=== PATIENT | male | born 1930 | race Caucasian/White ===

== ENCOUNTER 2016-07-01 21:05 | Inpatient (IN) | payer MEDICARE ==
[~2016-07-01] VITALS: Ht 172.7 cm; Wt 81.1 kg
[2016-07-01 21:15] VITALS: BP 153/70; PULSE 94; RESP 17
[2016-07-01 22:35] VITALS: Ht 172.7 cm; Wt 81.1 kg
[2016-07-01] MEDS ORDERED: ALBUTEROL HFA 8 GM INHALER INH SCH (23:00)
[2016-07-01] MEDS ORDERED: ALBUTEROL HFA 8 GM INHALER INH PRN (23:00)
[2016-07-01] MEDS ORDERED: ALPRAZOLAM 0.25 MG TAB PO PRN (23:00)
[2016-07-01] MEDS ORDERED: ACETAMINOPHEN 325 MG TAB PO PRN ×2 (23:00→23:06)
[2016-07-01] MEDS ORDERED: IBUPROFEN 200 MG TAB PO PRN (23:00)
[2016-07-01] MEDS ORDERED: [UNRECOGNIZED DRUG - OTHER] XX SCH (23:30)
[2016-07-01] MEDS: ATORVASTATIN 10 MG TAB PO SCH (23:53)
[2016-07-01] MEDS: DEXTROSE 10% 1,000 ML IV SCH (23:54)
[2016-07-01] MEDS: DOXAZOSIN 4 MG TAB PO SCH (23:54)
[2016-07-01 23:56] LABS: ADD UMIC NO; URINE BILIRUBIN (Dip) NEGATIVE (NEGATIVE); URINE BLOOD (Dip) NEGATIVE (NEGATIVE); URINE COLOR LT. YELLOW (YELLOW); URINE GLUCOSE (Dip) NEGATIVE (NEGATIVE); URINE KETONES (Dip) NEGATIVE (NEGATIVE); URINE LEUKOCYTE ESTERASE (Dip) NEGATIVE (NEGATIVE); URINE NITRITE (Dip) NEGATIVE (NEGATIVE); URINE TOTAL PROTEIN (Dip) NEGATIVE (NEGATIVE); URINE UROBILINOGEN (Dip) 0.2 E.U./dL (0.1-1.0)
[2016-07-02] MEDS ORDERED: LACTULOSE 30ML CUP PO PRN (01:30)
[2016-07-02] MEDS ORDERED: MAGNESIUM HYDROXIDE 30ML CUP PO PRN (01:30)
[2016-07-02] MEDS: DEXTROSE 10% 1,000 ML IV SCH ×2 (06:32→14:33)
[2016-07-02 07:00] VITALS: BP 121/58; RESP 18
[2016-07-02 08:39] LABS: BASOPHILS % 0.5 % (0.0-2.0); EOSINOPHILS # 0.1 10^3/ul (0.0-0.5); EOSINOPHILS % 1.5 % (0.0-7.0); HEMATOCRIT 25.7 % (42.0-52.0); HEMOGLOBIN 8.7 g/dl (14.0-18.0); LYMPHOCYTES # 2.2 10^3/ul (0.8-2.9); MEAN CORPUSCULAR HGB CONC 33.8 g/dl (32.0-37.0); MEAN CORPUSCULAR VOLUME 94.7 fl (82.0-101.0); MEAN PLATELET VOLUME 8.4 fl (7.4-10.4); MONOCYTE # 0.9 10^3/ul (0.3-0.9); MONOCYTES % 10.1 % (0.0-11.0); NEUTROPHIL # 5.8 10^3/ul (1.6-7.5); NEUTROPHILS % 63.9 % (39.0-77.0); PLATELET COUNT 323 10^3/UL (140-440); RED BLOOD COUNT 2.72 10^6/ul (4.70-6.10); RED CELL DISTRIBUTION WIDTH 15.8 % (11.5-14.5); UNCORRECTED WBC 9.1 10^3/ul (4.8-10.8); WHITE BLOOD COUNT 9.1 10^3/ul (4.8-10.8)
[2016-07-02 08:47] LABS: CONDITION 1
[2016-07-02 08:48] LABS: LH ANALYZER COMMENTS 1
[2016-07-02 08:59] LABS: ALBUMIN 2.8 g/dl (3.3-4.9)
[2016-07-02 09:00] LABS: POTASSIUM 3.6 mmol/L (3.5-5.1)
[2016-07-02] MEDS: RANITIDINE 150 MG TAB PO SCH (09:00)
[2016-07-02] MEDS: ACCUCHECK XX SCH ×2 (09:00→21:54)
[2016-07-02 09:02] LABS: ALBUMIN/GLOBULIN RATIO 0.75; BILIRUBIN,INDIRECT 0.2 mg/dl (0-1.1); BILIRUBIN,TOTAL 0.2 mg/dl (0.2-1.3); CREATININE 0.63 mg/dl (0.61-1.24); TOTAL PROTEIN 6.5 g/dl (6.1-8.1)
[2016-07-02 09:03] LABS: CALCIUM 8.8 mg/dl (8.4-10.2)
[2016-07-02 09:08] VITALS: BP 121/58; PULSE 101; RESP 18
[2016-07-02] MEDS: ASPIRIN 81 MG TAB PO SCH (09:11)
[2016-07-02] MEDS: LIDOCAINE 5% PATCH TD SCH (09:11)
[2016-07-02] MEDS: BUPROPION (XL) 150 MG TAB PO SCH (09:11)
[2016-07-02] MEDS: DOCUSATE SODIUM 100 MG CAP PO SCH ×2 (09:11→21:06)
[2016-07-02] MEDS: FINASTERIDE 5 MG TAB PO SCH (09:11)
--- NOTE | 2016-07-02 10:53 | PN ---
Date/Time of Note Date/Time of Note DATE: 07/02/16 TIME: 10:51 Assessment/Plan VTE Prophylaxis VTE Prophylaxis Intervention: ambulation Lines/Catheters IV Catheter Type (from [facility]): PICC Line Central line still needed: Yes Urinary Cath still in place: No Assessment/Plan Chief Complaint/Hosp Course 1) debilitation - acute rehab 2) pancreatic ca - s/p whipple - on TPN currently but also taking oral nutrition Problems: Subjective 24 Hr Interval Summary Free Text/Dictation Patient is a transfer from [facility] to Acute Rehab for therapy. Patient has a history of pancreatic CA and is s/p Whipple procedure. He is on TPN while awaiting his return to oral nutrition and he need therapy Exam/Review of Systems Vital Signs Vitals Vital Signs Date Time Temp Pulse Resp B/P Pulse Ox O2 Delivery O2 Flow Rate FiO2 07/02/16 09:08 98.4 101 18 121/58 97 Room Air Intake and Output 07/01/16 07/01/16 07/02/16 15:00 23:00 07:00 Intake Total 1060 ml Output Total 730 ml Balance 330 ml Exam Constitutional: alert, well developed Head: atraumatic, normocephalic Respiratory: clear to auscultation Cardiovascular: regular rate and rhythm Gastrointestinal: non-tender, soft Extremities: normal pulses Results Result Diagram: 07/02/16 0727 07/02/16 0727 Results 24 hrs Laboratory Tests Test 07/01/16 21:50 07/01/16 21:56 07/02/16 07:27 07/02/16 07:45 Urine Bilirubin NEGATIVE Urine Clarity CLEAR Urine Color LT. YELLOW Urine Glucose NEGATIVE Urine Hemoglobin NEGATIVE Urine Ketones NEGATIVE Urine Leukocyte Esterase NEGATIVE Urine Nitrite NEGATIVE Urine Specific [place] 1.015 Urine Total Protein NEGATIVE Urine Urobilinogen 0.2 E.U./dL Urine pH 7.5 Bedside Glucose 86 107 Alanine Aminotransferase (ALT/SGPT) 72 H Albumin 2.8 L Albumin/Globulin Ratio 0.75 Alkaline Phosphatase 193 H Anion Gap 14 Aspartate Amino Transf (AST/SGOT) 42 Basophils # 0.0 Basophils % 0.5 Blood Morphology Comment Blood Urea Nitrogen 9 Calcium Level 8.8 Carbon Dioxide Level 28 Chloride Level 99 Creatinine 0.63 Direct Bilirubin 0.00 Eosinophils # 0.1 Eosinophils % 1.5 Globulin 3.70 H Glucose Level 99 # Hematocrit 25.7 L Hemoglobin 8.7 L Indirect Bilirubin 0.2 Lymphocytes # 2.2 Lymphocytes % 24.0 Mean Corpuscular Hemoglobin 32.0 Mean Corpuscular Hemoglobin Concent 33.8 Mean Corpuscular Volume 94.7 Mean Platelet Volume 8.4 Monocytes # 0.9 Monocytes % 10.1 Neutrophils # 5.8 Neutrophils % 63.9 Nucleated Red Blood Cells # 0.0 Nucleated Red Blood Cells % 0.0 Platelet Count 323 Potassium Level 3.6 Red Blood Count 2.72 L Red Cell Distribution Width 15.8 H Sodium Level 137 Total Bilirubin 0.2 Total Protein 6.5 White Blood Count 9.1 Test 07/02/16 09:29 Bedside Glucose 166 Medications Medications Current Medications Ranitidine HCl (Zantac) 150 mg DAILY PO ; Start 07/02/16 at 09:00 Finasteride (Proscar) 5 mg DAILY PO Last administered on 07/02/16at 09:11; Admin Dose 5 MG; Start 07/02/16 at 09:00 Ibuprofen (Motrin) 200 mg Q6H PRN PO PAIN; Start 07/01/16 at 23:00 Lidocaine (Lidoderm) 1 patch DAILY TD Last administered on 07/02/16at 09:11; Admin Dose 1 PATCH; Start 07/02/16 at 09:00 Oxycodone/ Acetaminophen (Percocet (5/ 325)) 1 tab Q6H PRN PO PAIN; Start at 23:00 Alprazolam (Xanax) 0.5 mg QHS PRN PO SLEEP; Start 07/01/16 at 23:00 Aspirin (Aspirin) 81 mg DAILY PO Last administered on 07/02/16at 09:11; Admin Dose 81 MG; Start 07/02/16 at 09:00 Atorvastatin Calcium (Lipitor) 10 mg DAILY@21 PO Last administered on at 23:53; Admin Dose 10 MG; Start 07/01/16 at 22:38 Bupropion HCl 300 mg 300 mg DAILY PO Last administered on 07/02/16at 09:11; Admin Dose 300 MG; Start 07/02/16 at 09:00 Dextrose (D10w) 1,000 ml @ 133 mls/hr Q7H32M IV Last administered on at 23:54; Admin Dose 133 MLS/HR; Start 07/01/16 at 23:00 Doxazosin Mesylate (Cardura) 8 mg 21 PO Last administered on 07/01/16at 23:54; Admin Dose 8 MG; Start 07/01/16 at 23:00 Albuterol (Ventolin Hfa) 2 puff Q4H PRN INH SHORTNESS OF BREATH; Start at 23:00 Diagnostic Test (Pha) 1 ea 1 ea Q12 XX ; Start 07/02/16 at 09:00 Total Parenteral Nutrition (Tpn) 1,000 ml @ 133 mls/hr Q7H32M IV ; Start 07/02 at 21:00 Miscellaneous Information (*Order Clarification Bulletin) [facility] IS NON FORMUL... Q8H XX ; Start 07/01/16 at 23:30 Acetaminophen (Tylenol Tab) 325 mg Q6H PRN PO PAIN AND OR ELEVATED TEMP Last administered on 07/01/16at 23:54; Admin Dose 325 MG; Start 07/01/16 at 23:06 Docusate Sodium (Colace) 100 mg BID PO Last administered on 07/02/16at 09:11; Admin Dose 100 MG; Start 07/02/16 at 09:00 Senna (Senokot) 1 tab HS PO ; Start 07/02/16 at 21:00 Bisacodyl (Dulcolax Supp) 10 mg DAILY PRN [place] CONSTIPATION; Start 07/02/16 at 01:30 Magnesium Hydroxide (Milk Of Mag) 30 ml BID PRN PO CONSTIPATION; Start at 01:30 Lactulose (Enulose) 20 gm DAILY PRN PO CONSTIPATION; Start 07/02/16 at 01:30 Acetaminophen (Tylenol Tab) 650 mg Q4H PRN PO PAIN; Start 07/02/16 at 01:30 Oxycodone HCl (Roxicodone) 5 mg Q4H PRN PO MODERATE PAIN; Start 07/02/16 at 04 :07 Miscellaneous Information (*Order Clarification Bulletin) MEDICATION REQUIRES CLARIFICATI... Q8H XX ; Start 07/02/16 at 04:30 CAROL RENO Jul 02, 2016 10:53
--- NOTE | 2016-07-02 13:58 | CONS ---
DATE OF ADMISSION: 07/01/2016 DATE OF CONSULTATION: 07/02/2016 REHABILITATION POST ADMISSION PHYSICIAN EVALUATION REHABILITATION IMPAIRMENT CATEGORY: Debility secondary to Whipple resection, cholecystectomy and sepsis. ACTIVE COMORBIDITIES: 1. Improving toxic metabolic encephalopathy. 2. History of coronary artery disease and coronary artery bypass graft. 3. Hypertension. 4. Acute kidney injury. 5. Status post sepsis. 6. Hyperlipidemia. 7. History of adenocarcinoma. 8. Impairments in self-care, mobility and cognition. 9. History of low back pain. HISTORY OF PRESENT ILLNESS: The patient is a pleasant 86-year-old gentleman with a history of multiple medical comorbidities, who underwent a Whipple resection and cholecystectomy, with postoperative course complicated by acute kidney injury, in addition to intra-abdominal sepsis, small-bowel obstruction, and significant pain, as well as toxic metabolic encephalopathy. The patient did require a drain placement for intraabdominal abscess. The patient was later transferred to [facility] and made steady medical gains. The patient is now able to tolerate interdisciplinary acute rehab and is being transferred to the rehabilitation unit for comprehensive interdisciplinary rehab care. FUNCTIONAL HISTORY: Prior to recent events he was independent in self-care tasks and mobility. Currently the patient requires moderate assist for self- care and mobility tasks. I have reviewed the preadmission screen and the patient's current functional status is consistent with the preadmission screen. SOCIAL HISTORY: The patient lives at home with family and hopes to return there upon discharge. PAST MEDICAL HISTORY: 1. Ampullary adenocarcinoma. 2. Coronary artery disease, with a history of coronary artery bypass graft. 3. Hypertension. 4. Hyperlipidemia. 5. Aortic stenosis. 6. History of spinal stenosis and radiculopathy, status post surgery. CURRENT MEDICATIONS: 1. Albuterol inhaler. 2. Xanax p.r.n. 3. Aspirin 81 mg p.o. daily. 4. Lipitor 10 mg p.o. daily. 5. Wellbutrin 300 mg p.o. daily. 6. Cardura 8 mg p.o. at bedtime. 7. Proscar 5 mg p.o. daily. 8. Motrin p.r.n. 9. Lidoderm p.r.n. 10. Melatonin 5 mg p.o. at bedtime. 11. Oxycodone p.r.n. 12. Zantac 150 p.o. daily. ALLERGIES: PATIENT WITH NO KNOWN DRUG ALLERGIES. PHYSICAL EXAMINATION: VITAL SIGNS: The patient is currently afebrile, with stable vital signs. HEENT: Extraocular motions intact. Oropharynx is clear. NECK: Supple. LUNGS: Clear anteriorly. CARDIAC: S1, S2. ABDOMEN: Soft, nontender. Positive bowel sounds. NEUROLOGIC: He is awake and alert. He is oriented to person, hospital and month. He will follow simple 1-step commands. He demonstrates antigravity strength in the bilateral upper extremities and lower extremity. PLAN: The patient has been admitted for comprehensive interdisciplinary acute rehab and is anticipated to tolerate 3 hours of daily therapy in divided doses for at least 5/7 days a week. The treatment plan will include: 1. Physical therapy to focus on bed mobility, transfers, and household ambulation, with the goal of having the patient reach a standby assist level. 2. Occupational therapy to focus on hygiene, grooming, dressing, bathing, and toileting activities, with the goal of having the patient reach a standby assist level. 3. Speech therapy for full cognitive assessment and retraining, with the goal of having patient return to baseline cognition. 4. Rehabilitation nursing for carryover of therapeutic interventions, with the goal of continent of bowel and bladder, and the goal of pain adequately managed on oral medications. ESTIMATED LENGTH OF STAY: 14 days. DISPOSITION GOAL: Home. Rehabilitation Barrier: Weakness Intervention for Barrier: Interdisciplinary Rehab I acknowledge that I have performed a full physical examination on this patient within 24 hours of admission to the rehabilitation unit and believe the patient is a good candidate for comprehensive interdisciplinary rehab care and is anticipated to make reasonable goals in a reasonable period of time, as outlined above. Dictated By: CATIE ROJAS/ALIYA Conf#: [id number] DID#: [id number] COCO
[2016-07-02] MEDS: OXYCODONE/ACETAMINOPHEN (5/325) TAB PO PRN (14:41)
[2016-07-02] MEDS: BISACODYL 10 MG SUPP PR PRN (15:59)
[2016-07-02 20:00] VITALS: BP 138/64; PULSE 103; RESP 18
[2016-07-02] MEDS ORDERED: (Nursing Note) XX SCH (21:00)
[2016-07-02] MEDS ORDERED: TPN 1,000 ML IV SCH (21:00)
[2016-07-02] MEDS: TPN 1,000 ML IV SCH (21:06)
[2016-07-02] MEDS: ATORVASTATIN 10 MG TAB PO SCH (21:06)
[2016-07-02] MEDS: DOXAZOSIN 4 MG TAB PO SCH (21:06)
[2016-07-02] MEDS: SENNA TAB PO SCH (21:06)
[2016-07-02] MEDS: FAT EMULSION 20% 250 ML IV SCH (21:06)
[2016-07-03] MEDS: TPN 1,000 ML IV SCH ×2 (05:47→21:22)
[2016-07-03 07:30] VITALS: BP 138/61; RESP 18
[2016-07-03 08:00] VITALS: BP 138/61; PULSE 64; RESP 18
[2016-07-03] MEDS: ACETAMINOPHEN 325 MG TAB PO PRN (08:05)
[2016-07-03] MEDS: LIDOCAINE 5% PATCH TD SCH (09:00)
[2016-07-03] MEDS: RANITIDINE 150 MG TAB PO SCH (09:00)
[2016-07-03] MEDS: DOCUSATE SODIUM 100 MG CAP PO SCH ×2 (09:15→21:10)
[2016-07-03] MEDS: BUPROPION (XL) 150 MG TAB PO SCH (09:15)
[2016-07-03] MEDS: FINASTERIDE 5 MG TAB PO SCH (09:15)
[2016-07-03] MEDS: ASPIRIN 81 MG TAB PO SCH (09:16)
[2016-07-03] MEDS: ACCUCHECK XX SCH ×2 (09:16→21:00)
[2016-07-03 10:31] LABS: POTASSIUM 4.1 mmol/L (3.5-5.1)
[2016-07-03 10:33] LABS: CREATININE 0.63 mg/dl (0.61-1.24)
[2016-07-03 10:34] LABS: CALCIUM 8.4 mg/dl (8.4-10.2); PHOSPHORUS 3.4 mg/dl (2.5-4.9)
[2016-07-03 10:35] LABS: MAGNESIUM 2.3 mg/dl (1.7-2.5)
[2016-07-03 11:17] VITALS: BP 138/61; PULSE 64; RESP 18
--- NOTE | 2016-07-03 13:11 | PN ---
Date/Time of Note Date/Time of Note DATE: 07/03/16 TIME: 13:10 Assessment/Plan VTE Prophylaxis VTE Prophylaxis Intervention: other Lines/Catheters IV Catheter Type (from Nrsg): PICC Line Central line still needed: Yes Urinary Cath still in place: No Assessment/Plan Chief Complaint/Hosp Course 1) debilitation - acute rehab 2) pancreatic ca - s/p whipple - on TPN currently but also taking oral nutrition Problems: Subjective 24 Hr Interval Summary Free Text/Dictation Patient has no complaints Exam/Review of Systems Vital Signs Vitals Vital Signs Date Time Temp Pulse Resp B/P Pulse Ox O2 Delivery O2 Flow Rate FiO2 07/03/16 08:00 98.6 64 18 138/61 96 Room Air Intake and Output 07/02/16 07/02/16 07/03/16 15:00 23:00 07:00 Intake Total 900 ml 905 ml 1360 ml Output Total 150 ml 300 ml 700 ml Balance 750 ml 605 ml 660 ml Exam Constitutional: well developed Head: atraumatic, normocephalic Neck: supple Respiratory: clear to auscultation Cardiovascular: regular rate and rhythm Gastrointestinal: non-tender, soft Extremities: normal pulses Results Result Diagram: 07/02/16 0727 07/03/16 0945 Results 24 hrs Laboratory Tests Test 07/02/16 16:49 07/02/16 20:03 07/03/16 07:28 07/03/16 09:45 Bedside Glucose 97 83 141 Anion Gap 13 Blood Urea Nitrogen 16 Calcium Level 8.4 Carbon Dioxide Level 29 Chloride Level 99 Creatinine 0.63 Glucose Level 105 Magnesium Level 2.3 Phosphorus Level 3.4 Potassium Level 4.1 Sodium Level 137 Medications Medications Current Medications Ranitidine HCl (Zantac) 150 mg DAILY PO ; Start 07/02/16 at 09:00 Finasteride (Proscar) 5 mg DAILY PO Last administered on 07/03/16t 09:15; Admin Dose 5 MG; Start 07/02/16 at 09:00 Ibuprofen (Motrin) 200 mg Q6H PRN PO PAIN; Start 07/01/16 at 23:00 Lidocaine (Lidoderm) 1 patch DAILY TD Last administered on 07/02/16at 09:11; Admin Dose 1 PATCH; Start 07/02/16 at 09:00 Oxycodone/ Acetaminophen (Percocet (5/ 325)) 1 tab Q6H PRN PO PAIN Last administered on 07/02/16at 14:41; Admin Dose 1 TAB; Start 07/01/16 at 23:00 Alprazolam (Xanax) 0.5 mg QHS PRN PO SLEEP; Start 07/01/16 at 23:00 Aspirin (Aspirin) 81 mg DAILY PO Last administered on 07/03/16 09:16; Admin Dose 81 MG; Start 07/02/16 at 09:00 Atorvastatin Calcium (Lipitor) 10 mg DAILY@21 PO Last administered on at 21:06; Admin Dose 10 MG; Start 07/01/16 at 22:38 Bupropion HCl (Wellbutrin Xl) 300 mg DAILY PO Last administered on 07/03/16 09: 15; Admin Dose 300 MG; Start 07/02/16 at 09:00 Doxazosin Mesylate (Cardura) 8 mg 21 PO Last administered on 07/02/16at 21:06; Admin Dose 8 MG; Start 07/01/16 at 23:00 Albuterol (Ventolin Hfa) 2 puff Q4H PRN INH SHORTNESS OF BREATH; Start at 23:00 Diagnostic Test (Pha) (Accucheck) 1 ea Q12 XX Last administered on 07/03/16 09: 16; Admin Dose 1 EA; Start 07/02/16 at 09:00 Acetaminophen (Tylenol Tab) 325 mg Q6H PRN PO PAIN AND OR ELEVATED TEMP Last administered on 07/01/16at 23:54; Admin Dose 325 MG; Start 07/01/16 at 23:06 Docusate Sodium (Colace) 100 mg BID PO Last administered on 07/03/16 09:15; Admin Dose 100 MG; Start 07/02/16 at 09:00 Senna (Senokot) 1 tab HS PO Last administered on 07/02/16at 21:06; Admin Dose 1 TAB; Start 07/02/16 at 21:00 Bisacodyl (Dulcolax Supp) 10 mg DAILY PRN [place] CONSTIPATION Last administered on 07/02/16at 15:59; Admin Dose 10 MG; Start 07/02/16 at 01:30 Magnesium Hydroxide (Milk Of Mag) 30 ml BID PRN PO CONSTIPATION; Start at 01:30 Lactulose (Enulose) 20 gm DAILY PRN PO CONSTIPATION; Start 07/02/16 at 01:30 Acetaminophen (Tylenol Tab) 650 mg Q4H PRN PO PAIN Last administered on 08:05; Admin Dose 650 MG; Start 07/02/16 at 01:30 Oxycodone HCl 5 mg 5 mg Q4H PRN PO MODERATE PAIN; Start 07/02/16 at 04:07 Total Parenteral Nutrition 1,000 ml @ 133 mls/hr 21 IV Last administered on at 21:06; Admin Dose 133 MLS/HR; Start 07/02/16 at 21:00 Total Parenteral Nutrition (Tpn) 1,000 ml @ 133 mls/hr 0430 IV Last administered on 07/03/16 05:47; Admin Dose 133 MLS/HR; Start 07/03/16 at 04:30 Miscellaneous Information 1 ea 1 ea NOTE XX ; Start 07/02/16 at 21:00 Fat Emulsion Intravenous (Liposyn Ii 20%) 250 ml @ 21 mls/hr 21 IV Last administered on 07/02/16at 21:06; Admin Dose 21 MLS/HR; Start 07/02/16 at 21:00 CAROL RENO Jul 03, 2016 13:11
[2016-07-03] MEDS: OXYCODONE/ACETAMINOPHEN (5/325) TAB PO PRN ×2 (14:30→21:09)
[2016-07-03 20:00] VITALS: BP 142/65; PULSE 103; RESP 19
[2016-07-03 20:11] VITALS: BP 142/65; RESP 19
[2016-07-03] MEDS: FAT EMULSION 20% 250 ML IV SCH (21:09)
[2016-07-03] MEDS: SENNA TAB PO SCH (21:15)
[2016-07-03] MEDS: ATORVASTATIN 10 MG TAB PO SCH (21:15)
[2016-07-03] MEDS: DOXAZOSIN 4 MG TAB PO SCH (21:15)
[2016-07-04] MEDS: TPN 1,000 ML IV SCH ×2 (04:51→20:50)
[2016-07-04 07:30] VITALS: BP 140/65; RESP 18
[2016-07-04] MEDS: RANITIDINE 150 MG TAB PO SCH (08:32)
[2016-07-04] MEDS: DOCUSATE SODIUM 100 MG CAP PO SCH ×2 (08:33→20:50)
[2016-07-04] MEDS: ASPIRIN 81 MG TAB PO SCH (08:33)
[2016-07-04] MEDS: OXYCODONE/ACETAMINOPHEN (5/325) TAB PO PRN ×2 (08:33→16:39)
[2016-07-04] MEDS: FINASTERIDE 5 MG TAB PO SCH (08:33)
[2016-07-04] MEDS: BUPROPION (XL) 150 MG TAB PO SCH (08:33)
[2016-07-04] MEDS: ACCUCHECK XX SCH ×2 (08:37→20:57)
[2016-07-04] MEDS: LIDOCAINE 5% PATCH TD SCH ×2 (08:37→11:48)
--- NOTE | 2016-07-04 11:28 | CONS ---
Date/Time of Note Date/Time of Note DATE: 07/04/16 TIME: 11:26 Consult Date/Type/Reason Admit Date/Time Jul 01, 2016 at 21:05 Initial Consult Date Subjective C/o LBP Objective max assist 15 feet Vital Signs Date Time Temp Pulse Resp B/P Pulse Ox O2 Delivery O2 Flow Rate FiO2 07/04/16 07:30 98.5 100 18 140/65 96 07/03/16 20:00 Room Air Intake and Output 07/03/16 07/03/16 07/04/16 14:59 22:59 06:59 Intake Total 996 ml 590 ml 1755 ml Output Total 350 ml 180 ml 1300 ml Balance 646 ml 410 ml 455 ml Results/Medications Result Diagram: 07/02/16 0727 07/03/16 0945 Results 24 hrs Laboratory Tests Test 07/03/16 17:22 07/03/16 20:57 07/04/16 07:51 Bedside Glucose 94 83 127 Medications Current Medications Ranitidine HCl (Zantac) 150 mg DAILY PO Last administered on 07/04/16 08:32; Admin Dose 150 MG; Start 07/02/16 at 09:00 Finasteride (Proscar) 5 mg DAILY PO Last administered on 07/04/16 08:33; Admin Dose 5 MG; Start 07/02/16 at 09:00 Ibuprofen (Motrin) 200 mg Q6H PRN PO PAIN; Start 07/01/16 at 23:00 Lidocaine (Lidoderm) 1 patch DAILY TD Last administered on 07/02/16at 09:11; Admin Dose 1 PATCH; Start 07/02/16 at 09:00 Oxycodone/ Acetaminophen (Percocet (5/ 325)) 1 tab Q6H PRN PO PAIN Last administered on 07/04/16 08:33; Admin Dose 1 TAB; Start 07/01/16 at 23:00 Alprazolam (Xanax) 0.5 mg QHS PRN PO SLEEP; Start 07/01/16 at 23:00 Aspirin (Aspirin) 81 mg DAILY PO Last administered on 07/04/16 08:33; Admin Dose 81 MG; Start 07/02/16 at 09:00 Atorvastatin Calcium (Lipitor) 10 mg DAILY@21 PO Last administered on 07/03/16 21:15; Admin Dose 10 MG; Start 07/01/16 at 22:38 Bupropion HCl (Wellbutrin Xl) 300 mg DAILY PO Last administered on 07/04/16 08: 33; Admin Dose 300 MG; Start 07/02/16 at 09:00 Doxazosin Mesylate (Cardura) 8 mg 21 PO Last administered on 07/03/16 21:15; Admin Dose 8 MG; Start 07/01/16 at 23:00 Albuterol (Ventolin Hfa) 2 puff Q4H PRN INH SHORTNESS OF BREATH; Start at 23:00 Diagnostic Test (Pha) (Accucheck) 1 ea Q12 XX Last administered on 07/04/16 08: 37; Admin Dose 1 EA; Start 07/02/16 at 09:00 Acetaminophen (Tylenol Tab) 325 mg Q6H PRN PO PAIN AND OR ELEVATED TEMP Last administered on 07/01/16at 23:54; Admin Dose 325 MG; Start 07/01/16 at 23:06 Docusate Sodium (Colace) 100 mg BID PO Last administered on 07/04/16 08:33; Admin Dose 100 MG; Start 07/02/16 at 09:00 Senna (Senokot) 1 tab HS PO Last administered on 07/03/16 21:15; Admin Dose 1 TAB; Start 07/02/16 at 21:00 Bisacodyl (Dulcolax Supp) 10 mg DAILY PRN [place] CONSTIPATION Last administered on 07/02/16at 15:59; Admin Dose 10 MG; Start 07/02/16 at 01:30 Magnesium Hydroxide (Milk Of Mag) 30 ml BID PRN PO CONSTIPATION; Start at 01:30 Lactulose (Enulose) 20 gm DAILY PRN PO CONSTIPATION; Start 07/02/16 at 01:30 Acetaminophen (Tylenol Tab) 650 mg Q4H PRN PO PAIN Last administered on 08:05; Admin Dose 650 MG; Start 07/02/16 at 01:30 Oxycodone HCl 5 mg 5 mg Q4H PRN PO MODERATE PAIN; Start 07/02/16 at 04:07 Total Parenteral Nutrition 1,000 ml @ 133 mls/hr 21 IV Last administered on 21:22; Admin Dose 133 MLS/HR; Start 07/02/16 at 21:00 Total Parenteral Nutrition (Tpn) 1,000 ml @ 133 mls/hr 0430 IV Last administered on 07/04/16 04:51; Admin Dose 133 MLS/HR; Start 07/03/16 at 04:30 Miscellaneous Information 1 ea 1 ea NOTE XX ; Start 07/02/16 at 21:00 Fat Emulsion Intravenous (Liposyn Ii 20%) 250 ml @ 21 mls/hr 21 IV Last administered on 07/03/16 21:09; Admin Dose 21 MLS/HR; Start 07/02/16 at 21:00 Assessment/Plan Additional Assessment/Plan Rehab- Debility secondary to Whipple resection, cholecystectomy and sepsis/ Improving toxic metabolic encephalopathy. Tolerating rehab program well. Will add abdominal binder and lidoderm for LBP , and small dose of neurontin History of coronary artery disease and coronary artery bypass graft. Hypertension. Acute kidney injury. Status post sepsis. Hyperlipidemia. History of adenocarcinoma. CATIE PAREDES MD Jul 04, 2016 11:28
[2016-07-04] MEDS: GABAPENTIN 100 MG CAP PO SCH (11:58)
--- NOTE | 2016-07-04 14:00 | PN ---
Date/Time of Note Date/Time of Note DATE: 07/04/16 TIME: 13:59 Assessment/Plan VTE Prophylaxis VTE Prophylaxis Intervention: other Lines/Catheters IV Catheter Type (from Nrsg): PICC Line Central line still needed: Yes Urinary Cath still in place: No Assessment/Plan Chief Complaint/Hosp Course 1) debilitation - acute rehab 2) pancreatic ca - s/p whipple - on TPN currently but also taking oral nutrition Problems: Subjective 24 Hr Interval Summary Free Text/Dictation Patient working hard with rehab Exam/Review of Systems Vital Signs Vitals Vital Signs Date Time Temp Pulse Resp B/P Pulse Ox O2 Delivery O2 Flow Rate FiO2 07/04/16 07:30 98.5 100 18 140/65 96 07/03/16 20:00 Room Air Intake and Output 07/03/16 07/03/16 07/04/16 15:00 23:00 07:00 Intake Total 996 ml 590 ml 1755 ml Output Total 350 ml 180 ml 1300 ml Balance 646 ml 410 ml 455 ml Exam Head: atraumatic, normocephalic Respiratory: clear to auscultation Cardiovascular: regular rate and rhythm Gastrointestinal: non-tender, soft Results Result Diagram: 07/02/16 0727 07/03/16 0945 Results 24 hrs Laboratory Tests Test 07/03/16 17:22 07/03/16 20:57 07/04/16 07:51 Bedside Glucose 94 83 127 Medications Medications Current Medications Ranitidine HCl (Zantac) 150 mg DAILY PO Last administered on 07/04/16 08:32; Admin Dose 150 MG; Start 07/02/16 at 09:00 Finasteride (Proscar) 5 mg DAILY PO Last administered on 07/04/16 08:33; Admin Dose 5 MG; Start 07/02/16 at 09:00 Ibuprofen (Motrin) 200 mg Q6H PRN PO PAIN; Start 07/01/16 at 23:00 Lidocaine (Lidoderm) 1 patch DAILY TD Last administered on 07/04/16 11:48; Admin Dose 1 PATCH; Start 07/02/16 at 09:00 Oxycodone/ Acetaminophen (Percocet (5/ 325)) 1 tab Q6H PRN PO PAIN Last administered on 07/04/16 08:33; Admin Dose 1 TAB; Start 07/01/16 at 23:00 Alprazolam (Xanax) 0.5 mg QHS PRN PO SLEEP; Start 07/01/16 at 23:00 Aspirin (Aspirin) 81 mg DAILY PO Last administered on 07/04/16 08:33; Admin Dose 81 MG; Start 07/02/16 at 09:00 Atorvastatin Calcium (Lipitor) 10 mg DAILY@21 PO Last administered on 07/03/16 21:15; Admin Dose 10 MG; Start 07/01/16 at 22:38 Bupropion HCl (Wellbutrin Xl) 300 mg DAILY PO Last administered on 07/04/16 08: 33; Admin Dose 300 MG; Start 07/02/16 at 09:00 Doxazosin Mesylate (Cardura) 8 mg 21 PO Last administered on 07/03/16 21:15; Admin Dose 8 MG; Start 07/01/16 at 23:00 Albuterol (Ventolin Hfa) 2 puff Q4H PRN INH SHORTNESS OF BREATH; Start at 23:00 Diagnostic Test (Pha) (Accucheck) 1 ea Q12 XX Last administered on 07/04/16 08: 37; Admin Dose 1 EA; Start 07/02/16 at 09:00 Acetaminophen (Tylenol Tab) 325 mg Q6H PRN PO PAIN AND OR ELEVATED TEMP Last administered on 07/01/16at 23:54; Admin Dose 325 MG; Start 07/01/16 at 23:06 Docusate Sodium (Colace) 100 mg BID PO Last administered on 07/04/16 08:33; Admin Dose 100 MG; Start 07/02/16 at 09:00 Senna (Senokot) 1 tab HS PO Last administered on 07/03/16 21:15; Admin Dose 1 TAB; Start 07/02/16 at 21:00 Bisacodyl (Dulcolax Supp) 10 mg DAILY PRN [place] CONSTIPATION Last administered on 07/02/16at 15:59; Admin Dose 10 MG; Start 07/02/16 at 01:30 Magnesium Hydroxide (Milk Of Mag) 30 ml BID PRN PO CONSTIPATION; Start at 01:30 Lactulose (Enulose) 20 gm DAILY PRN PO CONSTIPATION; Start 07/02/16 at 01:30 Acetaminophen (Tylenol Tab) 650 mg Q4H PRN PO PAIN Last administered on 08:05; Admin Dose 650 MG; Start 07/02/16 at 01:30 Oxycodone HCl 5 mg 5 mg Q4H PRN PO MODERATE PAIN; Start 07/02/16 at 04:07 Total Parenteral Nutrition 1,000 ml @ 133 mls/hr 21 IV Last administered on 21:22; Admin Dose 133 MLS/HR; Start 07/02/16 at 21:00 Total Parenteral Nutrition (Tpn) 1,000 ml @ 133 mls/hr 0430 IV Last administered on 07/04/16 04:51; Admin Dose 133 MLS/HR; Start 07/03/16 at 04:30 Miscellaneous Information 1 ea 1 ea NOTE XX ; Start 07/02/16 at 21:00 Fat Emulsion Intravenous (Liposyn Ii 20%) 250 ml @ 21 mls/hr 21 IV Last administered on 07/03/16 21:09; Admin Dose 21 MLS/HR; Start 07/02/16 at 21:00 Gabapentin (Neurontin) 100 mg DAILY PO Last administered on 07/04/16 11:58; Admin Dose 100 MG; Start 07/04/16 at 11:30 CAROL RENO Jul 04, 2016 14:00
[2016-07-04] MEDS: BISACODYL 10 MG SUPP PR PRN (16:39)
[2016-07-04 19:20] VITALS: BP 132/68; RESP 17
[2016-07-04] MEDS: FAT EMULSION 20% 250 ML IV SCH (20:50)
[2016-07-04] MEDS: ATORVASTATIN 10 MG TAB PO SCH (20:54)
[2016-07-04] MEDS: SENNA TAB PO SCH (20:54)
[2016-07-04] MEDS: DOXAZOSIN 4 MG TAB PO SCH (20:57)
[2016-07-05] MEDS: TPN 1,000 ML IV SCH ×2 (05:09→21:46)
[2016-07-05 07:26] LABS: POTASSIUM 4.3 mmol/L (3.5-5.1)
[2016-07-05 07:29] LABS: CREATININE 0.64 mg/dl (0.61-1.24)
[2016-07-05 07:30] VITALS: BP 144/66; RESP 20
[2016-07-05 07:30] LABS: MAGNESIUM 2.2 mg/dl (1.7-2.5); PHOSPHORUS 3.5 mg/dl (2.5-4.9)
[2016-07-05 07:36] LABS: CALCIUM 8.3 mg/dl (8.4-10.2)
[2016-07-05] MEDS: OXYCODONE/ACETAMINOPHEN (5/325) TAB PO PRN (09:36)
[2016-07-05] MEDS: LIDOCAINE 5% PATCH TD SCH (09:38)
[2016-07-05] MEDS: GABAPENTIN 100 MG CAP PO SCH (09:45)
[2016-07-05] MEDS: ACCUCHECK XX SCH ×2 (09:46→21:47)
[2016-07-05] MEDS: ASPIRIN 81 MG TAB PO SCH (09:46)
[2016-07-05] MEDS: RANITIDINE 150 MG TAB PO SCH (09:46)
[2016-07-05] MEDS: DOCUSATE SODIUM 100 MG CAP PO SCH ×2 (09:46→21:25)
[2016-07-05] MEDS: FINASTERIDE 5 MG TAB PO SCH (09:46)
[2016-07-05] MEDS: BUPROPION (XL) 150 MG TAB PO SCH (09:46)
--- NOTE | 2016-07-05 11:11 | CONS ---
Date/Time of Note Date/Time of Note DATE: 07/05/16 TIME: 11:10 Consult Date/Type/Reason Admit Date/Time Jul 01, 2016 at 21:05 Subjective patient would like to work towards home at end of week Objective Vital Signs Date Time Temp Pulse Resp B/P Pulse Ox O2 Delivery O2 Flow Rate FiO2 07/05/16 07:30 97.8 105 20 144/66 96 07/03/16 20:00 Room Air Intake and Output 07/04/16 07/04/16 07/05/16 15:00 23:00 07:00 Intake Total 480 ml 1325 ml 1290 ml Output Total 400 ml 400 ml Balance 80 ml 925 ml 1290 ml INTERDISCIPLINARY TEAM CONFERENCE BOWEL- Cont BLADDER-Cont SKIN- intact OT- DRESSING-mod/min BATHING-mod/min TOILETING-mod PT- BED MOBILITY-min TRANSFERS-min AMBULATION-min 100 feet SPEECH- COGNITION-s/VT DYPHAGIA- limitied po intake A/P- Interdisciplinary team conference held today. Please see interdisciplinary sheet. Working toward d.c. on 07/08 with post discharge follow up of physical therapy, occupational therapy, if stable for dc Results/Medications Result Diagram: 07/02/16 0727 07/05/16 0545 Results 24 hrs Laboratory Tests Test 07/04/16 21:13 07/05/16 05:45 07/05/16 07:37 Bedside Glucose 135 135 Anion Gap 9 Blood Urea Nitrogen 18 Calcium Level 8.3 L Carbon Dioxide Level 30 Chloride Level 100 Creatinine 0.64 Glucose Level 124 Magnesium Level 2.2 Phosphorus Level 3.5 Potassium Level 4.3 Sodium Level 135 Medications Current Medications Ranitidine HCl (Zantac) 150 mg DAILY PO Last administered on 07/05/16 09:46; Admin Dose 150 MG; Start 07/02/16 at 09:00 Finasteride (Proscar) 5 mg DAILY PO Last administered on 07/05/16 09:46; Admin Dose 5 MG; Start 07/02/16 at 09:00 Ibuprofen (Motrin) 200 mg Q6H PRN PO PAIN; Start 07/01/16 at 23:00 Lidocaine (Lidoderm) 1 patch DAILY TD Last administered on 07/05/16 09:38; Admin Dose 1 PATCH; Start 07/02/16 at 09:00 Oxycodone/ Acetaminophen (Percocet (5/ 325)) 1 tab Q6H PRN PO PAIN Last administered on 07/05/16 09:36; Admin Dose 1 TAB; Start 07/01/16 at 23:00 Alprazolam (Xanax) 0.5 mg QHS PRN PO SLEEP; Start 07/01/16 at 23:00 Aspirin (Aspirin) 81 mg DAILY PO Last administered on 07/05/16 09:46; Admin Dose 81 MG; Start 07/02/16 at 09:00 Atorvastatin Calcium (Lipitor) 10 mg DAILY@21 PO Last administered on 07/04/16 20:54; Admin Dose 10 MG; Start 07/01/16 at 22:38 Bupropion HCl (Wellbutrin Xl) 300 mg DAILY PO Last administered on 07/05/16 09: 46; Admin Dose 300 MG; Start 07/02/16 at 09:00 Doxazosin Mesylate (Cardura) 8 mg 21 PO Last administered on 07/04/16 20:57; Admin Dose 8 MG; Start 07/01/16 at 23:00 Albuterol (Ventolin Hfa) 2 puff Q4H PRN INH SHORTNESS OF BREATH; Start at 23:00 Diagnostic Test (Pha) (Accucheck) 1 ea Q12 XX Last administered on 07/05/16 09: 46; Admin Dose 1 EA; Start 07/02/16 at 09:00 Acetaminophen (Tylenol Tab) 325 mg Q6H PRN PO PAIN AND OR ELEVATED TEMP Last administered on 07/01/16at 23:54; Admin Dose 325 MG; Start 07/01/16 at 23:06 Docusate Sodium (Colace) 100 mg BID PO Last administered on 07/05/16 09:46; Admin Dose 100 MG; Start 07/02/16 at 09:00 Senna (Senokot) 1 tab HS PO Last administered on 07/04/16 20:54; Admin Dose 1 TAB; Start 07/02/16 at 21:00 Bisacodyl (Dulcolax Supp) 10 mg DAILY PRN [place] CONSTIPATION Last administered on 07/04/16 16:39; Admin Dose 10 MG; Start 07/02/16 at 01:30 Magnesium Hydroxide (Milk Of Mag) 30 ml BID PRN PO CONSTIPATION; Start at 01:30 Lactulose (Enulose) 20 gm DAILY PRN PO CONSTIPATION; Start 07/02/16 at 01:30 Acetaminophen (Tylenol Tab) 650 mg Q4H PRN PO PAIN Last administered on 08:05; Admin Dose 650 MG; Start 07/02/16 at 01:30 Oxycodone HCl 5 mg 5 mg Q4H PRN PO MODERATE PAIN; Start 07/02/16 at 04:07 Total Parenteral Nutrition 1,000 ml @ 133 mls/hr 21 IV Last administered on 20:50; Admin Dose 133 MLS/HR; Start 07/02/16 at 21:00 Total Parenteral Nutrition (Tpn) 1,000 ml @ 133 mls/hr 0430 IV Last administered on 07/05/16 05:09; Admin Dose 133 MLS/HR; Start 07/03/16 at 04:30 Miscellaneous Information 1 ea 1 ea NOTE XX ; Start 07/02/16 at 21:00 Fat Emulsion Intravenous (Liposyn Ii 20%) 250 ml @ 21 mls/hr 21 IV Last administered on 07/04/16 20:50; Admin Dose 21 MLS/HR; Start 07/02/16 at 21:00 Gabapentin (Neurontin) 100 mg DAILY PO Last administered on 07/05/16 09:45; Admin Dose 100 MG; Start 07/04/16 at 11:30 CATIE PAREDES MD Jul 05, 2016 11:10
--- NOTE | 2016-07-05 13:01 | PN ---
Date/Time of Note Date/Time of Note DATE: 07/05/16 TIME: 13:00 Assessment/Plan VTE Prophylaxis VTE Prophylaxis Intervention: other Lines/Catheters IV Catheter Type (from Nrsg): PICC Line Central line still needed: Yes Urinary Cath still in place: No Assessment/Plan Chief Complaint/Hosp Course 1) debilitation - acute rehab 2) pancreatic ca - s/p whipple - on TPN currently but also taking oral nutrition Problems: Subjective 24 Hr Interval Summary Free Text/Dictation Patient has no complaints Exam/Review of Systems Vital Signs Vitals Vital Signs Date Time Temp Pulse Resp B/P Pulse Ox O2 Delivery O2 Flow Rate FiO2 07/05/16 07:30 97.8 105 20 144/66 96 07/03/16 20:00 Room Air Intake and Output 07/04/16 07/04/16 07/05/16 15:00 23:00 07:00 Intake Total 480 ml 1325 ml 1290 ml Output Total 400 ml 400 ml Balance 80 ml 925 ml 1290 ml Exam Constitutional: well developed Head: atraumatic, normocephalic Neck: supple Respiratory: clear to auscultation Cardiovascular: regular rate and rhythm Gastrointestinal: non-tender, soft Extremities: normal pulses Results Result Diagram: 07/02/16 0727 07/05/16 0545 Results 24 hrs Laboratory Tests Test 07/04/16 21:13 07/05/16 05:45 07/05/16 07:37 Bedside Glucose 135 135 Anion Gap 9 Blood Urea Nitrogen 18 Calcium Level 8.3 L Carbon Dioxide Level 30 Chloride Level 100 Creatinine 0.64 Glucose Level 124 Magnesium Level 2.2 Phosphorus Level 3.5 Potassium Level 4.3 Sodium Level 135 Medications Medications Current Medications Ranitidine HCl (Zantac) 150 mg DAILY PO Last administered on 07/05/16 09:46; Admin Dose 150 MG; Start 07/02/16 at 09:00 Finasteride (Proscar) 5 mg DAILY PO Last administered on 07/05/16 09:46; Admin Dose 5 MG; Start 07/02/16 at 09:00 Ibuprofen (Motrin) 200 mg Q6H PRN PO PAIN; Start 07/01/16 at 23:00 Lidocaine (Lidoderm) 1 patch DAILY TD Last administered on 07/05/16 09:38; Admin Dose 1 PATCH; Start 07/02/16 at 09:00 Oxycodone/ Acetaminophen (Percocet (5/ 325)) 1 tab Q6H PRN PO PAIN Last administered on 07/05/16 09:36; Admin Dose 1 TAB; Start 07/01/16 at 23:00 Alprazolam (Xanax) 0.5 mg QHS PRN PO SLEEP; Start 07/01/16 at 23:00 Aspirin (Aspirin) 81 mg DAILY PO Last administered on 07/05/16 09:46; Admin Dose 81 MG; Start 07/02/16 at 09:00 Atorvastatin Calcium (Lipitor) 10 mg DAILY@21 PO Last administered on 07/04/16 20:54; Admin Dose 10 MG; Start 07/01/16 at 22:38 Bupropion HCl (Wellbutrin Xl) 300 mg DAILY PO Last administered on 07/05/16 09: 46; Admin Dose 300 MG; Start 07/02/16 at 09:00 Doxazosin Mesylate (Cardura) 8 mg 21 PO Last administered on 07/04/16 20:57; Admin Dose 8 MG; Start 07/01/16 at 23:00 Albuterol (Ventolin Hfa) 2 puff Q4H PRN INH SHORTNESS OF BREATH; Start at 23:00 Diagnostic Test (Pha) (Accucheck) 1 ea Q12 XX Last administered on 07/05/16 09: 46; Admin Dose 1 EA; Start 07/02/16 at 09:00 Acetaminophen (Tylenol Tab) 325 mg Q6H PRN PO PAIN AND OR ELEVATED TEMP Last administered on 07/01/16at 23:54; Admin Dose 325 MG; Start 07/01/16 at 23:06 Docusate Sodium (Colace) 100 mg BID PO Last administered on 07/05/16 09:46; Admin Dose 100 MG; Start 07/02/16 at 09:00 Senna (Senokot) 1 tab HS PO Last administered on 07/04/16 20:54; Admin Dose 1 TAB; Start 07/02/16 at 21:00 Bisacodyl (Dulcolax Supp) 10 mg DAILY PRN [place] CONSTIPATION Last administered on 07/04/16 16:39; Admin Dose 10 MG; Start 07/02/16 at 01:30 Magnesium Hydroxide (Milk Of Mag) 30 ml BID PRN PO CONSTIPATION; Start at 01:30 Lactulose (Enulose) 20 gm DAILY PRN PO CONSTIPATION; Start 07/02/16 at 01:30 Acetaminophen (Tylenol Tab) 650 mg Q4H PRN PO PAIN Last administered on 08:05; Admin Dose 650 MG; Start 07/02/16 at 01:30 Oxycodone HCl 5 mg 5 mg Q4H PRN PO MODERATE PAIN; Start 07/02/16 at 04:07 Total Parenteral Nutrition 1,000 ml @ 133 mls/hr 21 IV Last administered on 20:50; Admin Dose 133 MLS/HR; Start 07/02/16 at 21:00 Total Parenteral Nutrition (Tpn) 1,000 ml @ 133 mls/hr 0430 IV Last administered on 07/05/16 05:09; Admin Dose 133 MLS/HR; Start 07/03/16 at 04:30 Miscellaneous Information 1 ea 1 ea NOTE XX ; Start 07/02/16 at 21:00 Fat Emulsion Intravenous (Liposyn Ii 20%) 250 ml @ 21 mls/hr 21 IV Last administered on 07/04/16 20:50; Admin Dose 21 MLS/HR; Start 07/02/16 at 21:00 Gabapentin (Neurontin) 100 mg DAILY PO Last administered on 07/05/16 09:45; Admin Dose 100 MG; Start 07/04/16 at 11:30 CAROL RENO Jul 05, 2016 13:01
[2016-07-05 20:01] VITALS: BP 147/72; RESP 18
[2016-07-05] MEDS: SENNA TAB PO SCH ×2 (21:00→21:25)
[2016-07-05] MEDS: ACETAMINOPHEN 325 MG TAB PO PRN (21:24)
[2016-07-05] MEDS: ATORVASTATIN 10 MG TAB PO SCH (21:26)
[2016-07-05] MEDS: DOXAZOSIN 4 MG TAB PO SCH (21:29)
[2016-07-05] MEDS: FAT EMULSION 20% 250 ML IV SCH (21:30)
[2016-07-06] MEDS: TPN 1,000 ML IV SCH ×2 (01:02→21:11)
[2016-07-06] MEDS: oxyCODONE 5 MG TAB PO PRN ×2 (01:45→08:22)
[2016-07-06 07:17] LABS: BASOPHIL # 0.1 10^3/ul (0.0-0.1); EOSINOPHILS # 0.3 10^3/ul (0.0-0.5); HEMATOCRIT 24.7 % (42.0-52.0); HEMOGLOBIN 8.4 g/dl (14.0-18.0); LYMPHOCYTES # 2.5 10^3/ul (0.8-2.9); LYMPHOCYTES % 26.6 % (15.0-51.0); MEAN CORPUSCULAR HEMOGLOBIN 32.3 pg (29.0-33.0); MEAN CORPUSCULAR HGB CONC 34.1 g/dl (32.0-37.0); MEAN CORPUSCULAR VOLUME 94.7 fl (82.0-101.0); MEAN PLATELET VOLUME 8.6 fl (7.4-10.4); MONOCYTE # 0.8 10^3/ul (0.3-0.9); MONOCYTES % 8.2 % (0.0-11.0); NEUTROPHIL # 5.8 10^3/ul (1.6-7.5); NEUTROPHILS % 61.2 % (39.0-77.0); PLATELET COUNT 352 10^3/UL (140-440); RED BLOOD COUNT 2.61 10^6/ul (4.70-6.10); UNCORRECTED WBC 9.5 10^3/ul (4.8-10.8); WHITE BLOOD COUNT 9.5 10^3/ul (4.8-10.8)
[2016-07-06 07:30] VITALS: BP 155/72; RESP 18
[2016-07-06 07:37] LABS: CONDITION 1; LH ANALYZER COMMENTS 1
[2016-07-06 08:00] VITALS: BP 155/72; PULSE 92
[2016-07-06] MEDS: ASPIRIN 81 MG TAB PO SCH (08:22)
[2016-07-06] MEDS: FINASTERIDE 5 MG TAB PO SCH (08:22)
[2016-07-06] MEDS: BUPROPION (XL) 150 MG TAB PO SCH (08:22)
[2016-07-06] MEDS: RANITIDINE 150 MG TAB PO SCH (08:22)
[2016-07-06] MEDS: GABAPENTIN 100 MG CAP PO SCH (08:22)
[2016-07-06] MEDS: DOCUSATE SODIUM 100 MG CAP PO SCH ×2 (08:22→21:04)
[2016-07-06] MEDS: LIDOCAINE 5% PATCH TD SCH ×2 (08:23→09:00)
[2016-07-06] MEDS: ACCUCHECK XX SCH ×2 (09:00→21:00)
--- NOTE | 2016-07-06 11:11 | CONS ---
Date/Time of Note Date/Time of Note DATE: 07/06/16 TIME: 11:08 Consult Date/Type/Reason Admit Date/Time Jul 01, 2016 at 21:05 Subjective Reports feeling better today Objective pulm- cta card- s1s2 min assist ambulation Vital Signs Date Time Temp Pulse Resp B/P Pulse Ox O2 Delivery O2 Flow Rate FiO2 07/06/16 07:30 98.2 92 18 155/72 96 07/03/16 20:00 Room Air Intake and Output 07/05/16 07/05/16 07/06/16 15:00 23:00 07:00 Intake Total 347 ml 560 ml 600 ml Output Total 900 ml 800 ml 1502 ml Balance -553 ml -240 ml -902 ml Results/Medications Result Diagram: 07/06/16 0620 07/05/16 0545 Results 24 hrs Laboratory Tests Test 07/05/16 20:24 07/06/16 06:20 07/06/16 07:54 Bedside Glucose 89 147 Basophils # 0.1 Basophils % 1.0 Blood Morphology Comment Eosinophils # 0.3 Eosinophils % 3.0 Hematocrit 24.7 L Hemoglobin 8.4 L Lymphocytes # 2.5 Lymphocytes % 26.6 Mean Corpuscular Hemoglobin 32.3 Mean Corpuscular Hemoglobin Concent 34.1 Mean Corpuscular Volume 94.7 Mean Platelet Volume 8.6 Monocytes # 0.8 Monocytes % 8.2 Neutrophils # 5.8 Neutrophils % 61.2 Nucleated Red Blood Cells # 0.0 Nucleated Red Blood Cells % 0.0 Platelet Count 352 Red Blood Count 2.61 L Red Cell Distribution Width 16.0 H White Blood Count 9.5 Medications Current Medications Ranitidine HCl (Zantac) 150 mg DAILY PO Last administered on 07/06/16 08:22; Admin Dose 150 MG; Start 07/02/16 at 09:00 Finasteride (Proscar) 5 mg DAILY PO Last administered on 07/06/16 08:22; Admin Dose 5 MG; Start 07/02/16 at 09:00 Ibuprofen (Motrin) 200 mg Q6H PRN PO PAIN; Start 07/01/16 at 23:00 Lidocaine (Lidoderm) 1 patch DAILY TD Last administered on 07/06/16 08:23; Admin Dose 1 PATCH; Start 07/02/16 at 09:00 Oxycodone/ Acetaminophen (Percocet (5/ 325)) 1 tab Q6H PRN PO PAIN Last administered on 07/05/16 09:36; Admin Dose 1 TAB; Start 07/01/16 at 23:00 Alprazolam (Xanax) 0.5 mg QHS PRN PO SLEEP; Start 07/01/16 at 23:00 Aspirin (Aspirin) 81 mg DAILY PO Last administered on 07/06/16 08:22; Admin Dose 81 MG; Start 07/02/16 at 09:00 Atorvastatin Calcium (Lipitor) 10 mg DAILY@21 PO Last administered on 07/05/16 21:26; Admin Dose 10 MG; Start 07/01/16 at 22:38 Bupropion HCl (Wellbutrin Xl) 300 mg DAILY PO Last administered on 07/06/16 08: 22; Admin Dose 300 MG; Start 07/02/16 at 09:00 Doxazosin Mesylate (Cardura) 8 mg 21 PO Last administered on 07/05/16 21:29; Admin Dose 8 MG; Start 07/01/16 at 23:00 Albuterol (Ventolin Hfa) 2 puff Q4H PRN INH SHORTNESS OF BREATH; Start at 23:00 Diagnostic Test (Pha) (Accucheck) 1 ea Q12 XX Last administered on 07/06/16 09: 00; Admin Dose 1 EA; Start 07/02/16 at 09:00 Acetaminophen (Tylenol Tab) 325 mg Q6H PRN PO PAIN AND OR ELEVATED TEMP Last administered on 07/01/16at 23:54; Admin Dose 325 MG; Start 07/01/16 at 23:06 Docusate Sodium (Colace) 100 mg BID PO Last administered on 07/06/16 08:22; Admin Dose 100 MG; Start 07/02/16 at 09:00 Senna (Senokot) 1 tab HS PO Last administered on 07/04/16 20:54; Admin Dose 1 TAB; Start 07/02/16 at 21:00 Bisacodyl (Dulcolax Supp) 10 mg DAILY PRN [place] CONSTIPATION Last administered on 07/04/16 16:39; Admin Dose 10 MG; Start 07/02/16 at 01:30 Magnesium Hydroxide (Milk Of Mag) 30 ml BID PRN PO CONSTIPATION; Start at 01:30 Lactulose (Enulose) 20 gm DAILY PRN PO CONSTIPATION; Start 07/02/16 at 01:30 Acetaminophen (Tylenol Tab) 650 mg Q4H PRN PO PAIN Last administered on 21:24; Admin Dose 650 MG; Start 07/02/16 at 01:30 Oxycodone HCl 5 mg 5 mg Q4H PRN PO MODERATE PAIN Last administered on 07/06/16 08:22; Admin Dose 5 MG; Start 07/02/16 at 04:07 Total Parenteral Nutrition 1,000 ml @ 133 mls/hr 21 IV Last administered on 21:46; Admin Dose 133 MLS/HR; Start 07/02/16 at 21:00 Total Parenteral Nutrition (Tpn) 1,000 ml @ 133 mls/hr 0430 IV Last administered on 07/06/16 01:02; Admin Dose 133 MLS/HR; Start 07/03/16 at 04:30 Miscellaneous Information 1 ea 1 ea NOTE XX ; Start 07/02/16 at 21:00 Fat Emulsion Intravenous (Liposyn Ii 20%) 250 ml @ 21 mls/hr 21 IV Last administered on 07/05/16 21:30; Admin Dose 21 MLS/HR; Start 07/02/16 at 21:00 Gabapentin (Neurontin) 100 mg DAILY PO Last administered on 07/06/16 08:22; Admin Dose 100 MG; Start 07/04/16 at 11:30 Assessment/Plan Additional Assessment/Plan Rehab- Debility seoncary to whipple/encephalopathy (improved) Progressing well with rehab FEN- still on TPN, encourage po intake CAD/CABG HTN adenoCA GODWIN s/p CATIE QUIGLEY MD Jul 06, 2016 11:11
--- NOTE | 2016-07-06 12:33 | PN ---
Date/Time of Note Date/Time of Note DATE: 07/06/16 TIME: 12:32 Assessment/Plan VTE Prophylaxis VTE Prophylaxis Intervention: LMWH Lines/Catheters [facility] P[facility] Line Central line still needed: Yes Urinary Cath still in place: No Assessment/Plan Chief Complaint/Hosp Course 1) debilitation - acute rehab 2) pancreatic ca - s/p whipple - on TPN currently but also taking oral nutrition Problems: Subjective 24 Hr Interval Summary Free Text/Dictation Patient has no complaints Exam/Review of Systems Vital Signs Vitals Vital Signs Date Time Temp Pulse Resp B/P Pulse Ox O2 Delivery O2 Flow Rate FiO2 07/06/16 08:00 98.2 92 155/72 96 Room Air 07/06/16 07:30 18 Intake and Output 07/05/16 07/05/16 07/06/16 15:00 23:00 07:00 Intake Total 347 ml 560 ml 600 ml Output Total 900 ml 800 ml 1502 ml Balance -553 ml -240 ml -902 ml Exam Constitutional: well developed Head: atraumatic, normocephalic Neck: supple Respiratory: clear to auscultation Cardiovascular: regular rate and rhythm Gastrointestinal: non-tender, soft Results Result Diagram: 07/06/16 0620 07/05/16 0545 Results 24 hrs Laboratory Tests Test 07/05/16 20:24 07/06/16 06:20 07/06/16 07:54 07/06/16 11:37 Bedside Glucose 89 147 105 Basophils # 0.1 Basophils % 1.0 Blood Morphology Comment Eosinophils # 0.3 Eosinophils % 3.0 Hematocrit 24.7 L Hemoglobin 8.4 L Lymphocytes # 2.5 Lymphocytes % 26.6 Mean Corpuscular Hemoglobin 32.3 Mean Corpuscular Hemoglobin Concent 34.1 Mean Corpuscular Volume 94.7 Mean Platelet Volume 8.6 Monocytes # 0.8 Monocytes % 8.2 Neutrophils # 5.8 Neutrophils % 61.2 Nucleated Red Blood Cells # 0.0 Nucleated Red Blood Cells % 0.0 Platelet Count 352 Red Blood Count 2.61 L Red Cell Distribution Width 16.0 H White Blood Count 9.5 Medications Medications Current Medications Ranitidine HCl (Zantac) 150 mg DAILY PO Last administered on 07/06/16t 08:22; Admin Dose 150 MG; Start 07/02/16 at 09:00 Finasteride (Proscar) 5 mg DAILY PO Last administered on 07/06/16 08:22; Admin Dose 5 MG; Start 07/02/16 at 09:00 Ibuprofen (Motrin) 200 mg Q6H PRN PO PAIN; Start 07/01/16 at 23:00 Lidocaine (Lidoderm) 1 patch DAILY TD Last administered on 07/06/16 08:23; Admin Dose 1 PATCH; Start 07/02/16 at 09:00 Oxycodone/ Acetaminophen (Percocet (5/ 325)) 1 tab Q6H PRN PO PAIN Last administered on 07/05/16 09:36; Admin Dose 1 TAB; Start 07/01/16 at 23:00 Alprazolam (Xanax) 0.5 mg QHS PRN PO SLEEP; Start 07/01/16 at 23:00 Aspirin (Aspirin) 81 mg DAILY PO Last administered on 07/06/16 08:22; Admin Dose 81 MG; Start 07/02/16 at 09:00 Atorvastatin Calcium (Lipitor) 10 mg DAILY@21 PO Last administered on 07/05/16 21:26; Admin Dose 10 MG; Start 07/01/16 at 22:38 Bupropion HCl (Wellbutrin Xl) 300 mg DAILY PO Last administered on 07/06/16 08: 22; Admin Dose 300 MG; Start 07/02/16 at 09:00 Doxazosin Mesylate (Cardura) 8 mg 21 PO Last administered on 07/05/16 21:29; Admin Dose 8 MG; Start 07/01/16 at 23:00 Albuterol (Ventolin Hfa) 2 puff Q4H PRN INH SHORTNESS OF BREATH; Start at 23:00 Diagnostic Test (Pha) (Accucheck) 1 ea Q12 XX Last administered on 07/06/16 09: 00; Admin Dose 1 EA; Start 07/02/16 at 09:00 Acetaminophen (Tylenol Tab) 325 mg Q6H PRN PO PAIN AND OR ELEVATED TEMP Last administered on 07/01/16at 23:54; Admin Dose 325 MG; Start 07/01/16 at 23:06 Docusate Sodium (Colace) 100 mg BID PO Last administered on 07/06/16 08:22; Admin Dose 100 MG; Start 07/02/16 at 09:00 Senna (Senokot) 1 tab HS PO Last administered on 07/04/16 20:54; Admin Dose 1 TAB; Start 07/02/16 at 21:00 Bisacodyl (Dulcolax Supp) 10 mg DAILY PRN [place] CONSTIPATION Last administered on 07/04/16 16:39; Admin Dose 10 MG; Start 07/02/16 at 01:30 Magnesium Hydroxide (Milk Of Mag) 30 ml BID PRN PO CONSTIPATION; Start at 01:30 Lactulose (Enulose) 20 gm DAILY PRN PO CONSTIPATION; Start 07/02/16 at 01:30 Acetaminophen (Tylenol Tab) 650 mg Q4H PRN PO PAIN Last administered on 21:24; Admin Dose 650 MG; Start 07/02/16 at 01:30 Oxycodone HCl 5 mg 5 mg Q4H PRN PO MODERATE PAIN Last administered on 07/06/16 08:22; Admin Dose 5 MG; Start 07/02/16 at 04:07 Total Parenteral Nutrition 1,000 ml @ 133 mls/hr 21 IV Last administered on 21:46; Admin Dose 133 MLS/HR; Start 07/02/16 at 21:00 Total Parenteral Nutrition (Tpn) 1,000 ml @ 133 mls/hr 0430 IV Last administered on 07/06/16 01:02; Admin Dose 133 MLS/HR; Start 07/03/16 at 04:30 Miscellaneous Information 1 ea 1 ea NOTE XX ; Start 07/02/16 at 21:00 Fat Emulsion Intravenous (Liposyn Ii 20%) 250 ml @ 21 mls/hr 21 IV Last administered on 07/05/16 21:30; Admin Dose 21 MLS/HR; Start 07/02/16 at 21:00 Gabapentin (Neurontin) 100 mg DAILY PO Last administered on 07/06/16 08:22; Admin Dose 100 MG; Start 07/04/16 at 11:30 CAROL RENO Jul 06, 2016 12:33
[2016-07-06] MEDS: OXYCODONE/ACETAMINOPHEN (5/325) TAB PO PRN (15:13)
[2016-07-06] MEDS: BISACODYL 10 MG SUPP PR PRN (15:13)
--- NOTE | 2016-07-06 18:35 | CONS ---
DATE OF ADMISSION: 07/01/2016 DATE OF CONSULTATION: 07/06/2016 TYPE OF CONSULTATION: Psychological. REFERRING PHYSICIAN: Catie Clemente MD CONSULTING PSYCHOLOGIST: Rea Dunbar, PhD REASON FOR CONSULTATION: This consultation was requested by Dr. Mason Clemente in order to evaluate the cognitive and emotional functioning of this patient related to his present medical condition. HISTORY OF PRESENT ILLNESS: The patient is an 86-year-old male. He has multiple medical comorbidities. The patient underwent a Whipple resection and cholecystectomy with postoperative course complicated by acute kidney injury. The patient was cleared medically and, after being in [facility], and then transferred to the acute rehabilitation unit for comprehensive interdisciplinary rehab care. The patient is very frustrated about what happened to him. The patient reports that he was walking fine before surgery. The patient now is walking a little bit better and is looking forward to returning home as soon as possible. The patient feels weak and is tired. The patient is motivated to get better and is trying his hardest to be able to leave the hospital program by this coming Monday. There is a problem with his eating that may delay his discharge and the patient is aware of this. FAMILY AND SOCIAL HISTORY: The patient lives with his in a home.The patient reports that his son lives nearby. The patient reports that he plans on getting someone to come in and help him with physical therapy and other tasks when he gets discharged. MEDICATIONS: The patient is currently on: 1. Wellbutrin-XL 300 mg daily. 2. Xanax 0.5 mg at bedtime p.r.n. 3. Neurontin 100 mg daily. SUBSTANCE USE: The patient reports that he does not smoke. The patient reports that he does not use alcohol or other drugs. MENTAL STATUS EXAMINATION: APPEARANCE: The patient was seen in his wheelchair. He was of average height and weight. The patient reports that he is right-handed. The patient has a rankin and mustache, wears glasses, and is bald. BEHAVIOR: The patient was cooperative during the consultation. The patient did attempt to answer all questions presented to him by the interviewer. MOOD AND AFFECT: The patient's mood appears to be slightly frustrated and depressed. The patient's affect was just slightly anxious. PERCEPTION: The patient reports no hallucinations or delusions. The patient was alert to person, place, situation, and time. MEMORY AND COGNITION: The patient's memory and cognition are clearly intact. He did not have any difficulty remembering recent and remote events. The patient was able to name the hospital. He was able to give the month, day, and year. The patient was able to say who the business services administrator is and who the governor of the state is. The patient was able to spell "world" backwards. The patient was able to do 5 serial-7 subtractions from 100 without error. Overall, given his age, the patient's mental functioning is quite good. INTELLIGENCE: Intelligence appears to fall in the above-average range. INSIGHT: Good. JUDGMENT: Good. THOUGHT CONTENT: The patient is concerned about his present medical condition. The patient is frustrated about all the things that have happened to him medically. The patient is motivated to get better and does want to return home. DISCUSSION: The patient could likely benefit from some cognitive/behavioral psychotherapy while he is on the unit. This is unlikely to happen if he leaves on Monday, but if he is still in the hospital, then he should have followup evaluation that might help him deal with his underlying level of frustration. DIAGNOSTIC IMPRESSION: F06.31, mood disorder due to multiple medical problems with depressive features. Thank you very much, Dr. Mason Clemente, for referring this individual. Please do not hesitate to call if you have additional questions. Dictated By: REA DUNBAR PHD RK/ALIYA Conf#: [id number] DID#: [id number] CC: CATIE CLEMENTE MD; ARACELI OREILLY MD;*EndCC* MTDD
[2016-07-06 20:30] VITALS: BP 126/65; RESP 18
[2016-07-06] MEDS: SENNA TAB PO SCH (21:04)
[2016-07-06] MEDS: ATORVASTATIN 10 MG TAB PO SCH (21:04)
[2016-07-06] MEDS: FAT EMULSION 20% 250 ML IV SCH (21:04)
[2016-07-06] MEDS: DOXAZOSIN 4 MG TAB PO SCH (21:05)
[2016-07-07] MEDS: TPN 1,000 ML IV SCH ×2 (04:54→21:17)
[2016-07-07] MEDS: ACETAMINOPHEN 325 MG TAB PO PRN (07:10)
[2016-07-07 07:15] VITALS: BP 136/66; RESP 18
[2016-07-07] MEDS: BUPROPION (XL) 150 MG TAB PO SCH (08:53)
[2016-07-07] MEDS: FINASTERIDE 5 MG TAB PO SCH (08:53)
[2016-07-07] MEDS: LIDOCAINE 5% PATCH TD SCH (08:53)
[2016-07-07] MEDS: DOCUSATE SODIUM 100 MG CAP PO SCH ×2 (08:53→20:41)
[2016-07-07] MEDS: RANITIDINE 150 MG TAB PO SCH (08:53)
[2016-07-07] MEDS: ASPIRIN 81 MG TAB PO SCH (08:53)
[2016-07-07] MEDS: GABAPENTIN 100 MG CAP PO SCH (08:53)
[2016-07-07] MEDS: ACCUCHECK XX SCH ×2 (09:15→21:17)
--- NOTE | 2016-07-07 12:13 | CONS ---
Date/Time of Note Date/Time of Note DATE: 07/07/16 TIME: 12:12 Consult Date/Type/Reason Admit Date/Time Jul 01, 2016 at 21:05 Subjective Family conference with daughter by phone. Dispo issues discussed. Family will have caregiver assistance available next week. Objective pulm- cta cga/min assist ambulation Vital Signs Date Time Temp Pulse Resp B/P Pulse Ox O2 Delivery O2 Flow Rate FiO2 07/07/16 07:15 98.1 104 18 136/66 94 07/06/16 08:00 Room Air Intake and Output 07/06/16 07/06/16 07/07/16 15:00 23:00 07:00 Intake Total 1980 ml 240 ml 1200 ml Output Total 200 ml 200 ml 1350 ml Balance 1780 ml 40 ml -150 ml Results/Medications Result Diagram: 07/06/16 0620 07/05/16 0545 Results 24 hrs Laboratory Tests Test 07/06/16 17:02 07/06/16 21:01 07/07/16 07:38 Bedside Glucose 98 88 155 Medications Current Medications Ranitidine HCl (Zantac) 150 mg DAILY PO Last administered on 07/07/16 08:53; Admin Dose 150 MG; Start 07/02/16 at 09:00 Finasteride (Proscar) 5 mg DAILY PO Last administered on 07/07/16 08:53; Admin Dose 5 MG; Start 07/02/16 at 09:00 Ibuprofen (Motrin) 200 mg Q6H PRN PO PAIN; Start 07/01/16 at 23:00 Lidocaine (Lidoderm) 1 patch DAILY TD Last administered on 07/07/16 08:53; Admin Dose 1 PATCH; Start 07/02/16 at 09:00 Oxycodone/ Acetaminophen (Percocet (5/ 325)) 1 tab Q6H PRN PO PAIN Last administered on 07/06/16 15:13; Admin Dose 1 TAB; Start 07/01/16 at 23:00 Alprazolam (Xanax) 0.5 mg QHS PRN PO SLEEP; Start 07/01/16 at 23:00 Aspirin (Aspirin) 81 mg DAILY PO Last administered on 07/07/16 08:53; Admin Dose 81 MG; Start 07/02/16 at 09:00 Atorvastatin Calcium (Lipitor) 10 mg DAILY@21 PO Last administered on 07/06/16 21:04; Admin Dose 10 MG; Start 07/01/16 at 22:38 Bupropion HCl (Wellbutrin Xl) 300 mg DAILY PO Last administered on 07/07/16 08: 53; Admin Dose 300 MG; Start 07/02/16 at 09:00 Doxazosin Mesylate (Cardura) 8 mg 21 PO Last administered on 07/06/16 21:05; Admin Dose 8 MG; Start 07/01/16 at 23:00 Albuterol (Ventolin Hfa) 2 puff Q4H PRN INH SHORTNESS OF BREATH; Start at 23:00 Diagnostic Test (Pha) (Accucheck) 1 ea Q12 XX Last administered on 07/07/16 09: 15; Admin Dose 1 EA; Start 07/02/16 at 09:00 Acetaminophen (Tylenol Tab) 325 mg Q6H PRN PO PAIN AND OR ELEVATED TEMP Last administered on 07/01/16at 23:54; Admin Dose 325 MG; Start 07/01/16 at 23:06 Docusate Sodium (Colace) 100 mg BID PO Last administered on 07/07/16 08:53; Admin Dose 100 MG; Start 07/02/16 at 09:00 Senna (Senokot) 1 tab HS PO Last administered on 07/06/16 21:04; Admin Dose 1 TAB; Start 07/02/16 at 21:00 Bisacodyl (Dulcolax Supp) 10 mg DAILY PRN [place] CONSTIPATION Last administered on 07/06/16 15:13; Admin Dose 10 MG; Start 07/02/16 at 01:30 Magnesium Hydroxide (Milk Of Mag) 30 ml BID PRN PO CONSTIPATION; Start at 01:30 Lactulose (Enulose) 20 gm DAILY PRN PO CONSTIPATION; Start 07/02/16 at 01:30 Acetaminophen (Tylenol Tab) 650 mg Q4H PRN PO PAIN Last administered on 07:10; Admin Dose 650 MG; Start 07/02/16 at 01:30 Oxycodone HCl 5 mg 5 mg Q4H PRN PO MODERATE PAIN Last administered on 07/06/16 08:22; Admin Dose 5 MG; Start 07/02/16 at 04:07 Total Parenteral Nutrition 1,000 ml @ 133 mls/hr 21 IV Last administered on 21:11; Admin Dose 133 MLS/HR; Start 07/02/16 at 21:00 Total Parenteral Nutrition (Tpn) 1,000 ml @ 133 mls/hr 0430 IV Last administered on 07/07/16 04:54; Admin Dose 133 MLS/HR; Start 07/03/16 at 04:30 Miscellaneous Information 1 ea 1 ea NOTE XX ; Start 07/02/16 at 21:00 Fat Emulsion Intravenous (Liposyn Ii 20%) 250 ml @ 21 mls/hr 21 IV Last administered on 07/06/16 21:04; Admin Dose 21 MLS/HR; Start 07/02/16 at 21:00 Gabapentin (Neurontin) 100 mg DAILY PO Last administered on 07/07/16 08:53; Admin Dose 100 MG; Start 07/04/16 at 11:30 Assessment/Plan Additional Assessment/Plan Rehab- Debility seoncary to whipple/encephalopathy (improved) Continue rehab program FEN- still on TPN, encourage po intake CAD/CABG HTN adenoCA GODWIN s/p CATIE QUIGLEY MD Jul 07, 2016 12:13
--- NOTE | 2016-07-07 12:58 | PN ---
Date/Time of Note Date/Time of Note DATE: 07/07/16 TIME: 12:57 Assessment/Plan VTE Prophylaxis VTE Prophylaxis Intervention: LMWH Lines/Catheters IV Catheter Type (from Nrsg): PICC Line Central line still needed: Yes Urinary Cath still in place: No Assessment/Plan Chief Complaint/Hosp Course 1) debilitation - acute rehab 2) pancreatic ca - s/p whipple - on TPN currently but also taking oral nutrition Problems: Subjective 24 Hr Interval Summary Free Text/Dictation Patient complain of stomach upset Exam/Review of Systems Vital Signs Vitals Vital Signs Date Time Temp Pulse Resp B/P Pulse Ox O2 Delivery O2 Flow Rate FiO2 07/07/16 07:15 98.1 104 18 136/66 94 07/06/16 08:00 Room Air Intake and Output 07/06/16 07/06/16 07/07/16 15:00 23:00 07:00 Intake Total 1980 ml 240 ml 1200 ml Output Total 200 ml 200 ml 1350 ml Balance 1780 ml 40 ml -150 ml Exam Constitutional: well developed Head: atraumatic, normocephalic Neck: supple Respiratory: clear to auscultation Cardiovascular: regular rate and rhythm Gastrointestinal: soft Extremities: normal pulses Results Result Diagram: 07/06/16 0620 07/05/16 0545 Results 24 hrs Laboratory Tests Test 07/06/16 17:02 07/06/16 21:01 07/07/16 07:38 07/07/16 12:41 Bedside Glucose 98 88 155 140 Medications Medications Current Medications Ranitidine HCl (Zantac) 150 mg DAILY PO Last administered on 07/07/16 08:53; Admin Dose 150 MG; Start 07/02/16 at 09:00 Finasteride (Proscar) 5 mg DAILY PO Last administered on 07/07/16 08:53; Admin Dose 5 MG; Start 07/02/16 at 09:00 Ibuprofen (Motrin) 200 mg Q6H PRN PO PAIN; Start 07/01/16 at 23:00 Lidocaine (Lidoderm) 1 patch DAILY TD Last administered on 07/07/16 08:53; Admin Dose 1 PATCH; Start 07/02/16 at 09:00 Oxycodone/ Acetaminophen (Percocet (5/ 325)) 1 tab Q6H PRN PO PAIN Last administered on 07/06/16 15:13; Admin Dose 1 TAB; Start 07/01/16 at 23:00 Alprazolam (Xanax) 0.5 mg QHS PRN PO SLEEP; Start 07/01/16 at 23:00 Aspirin (Aspirin) 81 mg DAILY PO Last administered on 07/07/16 08:53; Admin Dose 81 MG; Start 07/02/16 at 09:00 Atorvastatin Calcium (Lipitor) 10 mg DAILY@21 PO Last administered on 07/06/16 21:04; Admin Dose 10 MG; Start 07/01/16 at 22:38 Bupropion HCl (Wellbutrin Xl) 300 mg DAILY PO Last administered on 07/07/16 08: 53; Admin Dose 300 MG; Start 07/02/16 at 09:00 Doxazosin Mesylate (Cardura) 8 mg 21 PO Last administered on 07/06/16 21:05; Admin Dose 8 MG; Start 07/01/16 at 23:00 Albuterol (Ventolin Hfa) 2 puff Q4H PRN INH SHORTNESS OF BREATH; Start at 23:00 Diagnostic Test (Pha) (Accucheck) 1 ea Q12 XX Last administered on 07/07/16 09: 15; Admin Dose 1 EA; Start 07/02/16 at 09:00 Acetaminophen (Tylenol Tab) 325 mg Q6H PRN PO PAIN AND OR ELEVATED TEMP Last administered on 07/01/16at 23:54; Admin Dose 325 MG; Start 07/01/16 at 23:06 Docusate Sodium (Colace) 100 mg BID PO Last administered on 07/07/16 08:53; Admin Dose 100 MG; Start 07/02/16 at 09:00 Senna (Senokot) 1 tab HS PO Last administered on 07/06/16 21:04; Admin Dose 1 TAB; Start 07/02/16 at 21:00 Bisacodyl (Dulcolax Supp) 10 mg DAILY PRN [place] CONSTIPATION Last administered on 07/06/16 15:13; Admin Dose 10 MG; Start 07/02/16 at 01:30 Magnesium Hydroxide (Milk Of Mag) 30 ml BID PRN PO CONSTIPATION; Start at 01:30 Lactulose (Enulose) 20 gm DAILY PRN PO CONSTIPATION; Start 07/02/16 at 01:30 Acetaminophen (Tylenol Tab) 650 mg Q4H PRN PO PAIN Last administered on 07:10; Admin Dose 650 MG; Start 07/02/16 at 01:30 Oxycodone HCl 5 mg 5 mg Q4H PRN PO MODERATE PAIN Last administered on 07/06/16 08:22; Admin Dose 5 MG; Start 07/02/16 at 04:07 Total Parenteral Nutrition 1,000 ml @ 133 mls/hr 21 IV Last administered on 21:11; Admin Dose 133 MLS/HR; Start 07/02/16 at 21:00 Total Parenteral Nutrition (Tpn) 1,000 ml @ 133 mls/hr 0430 IV Last administered on 07/07/16 04:54; Admin Dose 133 MLS/HR; Start 07/03/16 at 04:30 Miscellaneous Information 1 ea 1 ea NOTE XX ; Start 07/02/16 at 21:00 Fat Emulsion Intravenous (Liposyn Ii 20%) 250 ml @ 21 mls/hr 21 IV Last administered on 07/06/16 21:04; Admin Dose 21 MLS/HR; Start 07/02/16 at 21:00 Gabapentin (Neurontin) 100 mg DAILY PO Last administered on 07/07/16 08:53; Admin Dose 100 MG; Start 07/04/16 at 11:30 CAROL RENO Jul 07, 2016 12:57
[2016-07-07] MEDS: AL HYDROX/MG HYDROX/SIMETH 30 ML CUP PO PRN (15:51)
--- NOTE | 2016-07-07 17:59 | RADRPT ---
PROCEDURE: XR Abdomen. CLINICAL INDICATION: Abdomen pain. TECHNIQUE: AP supine abdomen x-ray. COMPARISON: None. FINDINGS: The bowel gas pattern is normal. There is no evidence of obstruction. There are no abnormal calcifications overlying the urinary tracts. There are degenerative changes of the spine. There is malalignment at L3-4 with right lateral displ acement measuring approximately 0.7 cm. IMPRESSION: 1. Degenerative changes of the spine. 2. Well alignment at L3-4 as described above. 3. Otherwise unremarkable abdomen radiograph. RPTAT: QQ .Manfred Nguyen MD, MD Date Time Electronically viewed and signed by .Manfred Nguyen MD, MD on 07/07/2016 17:59 .R/
[2016-07-07 19:55] VITALS: BP 142/68; RESP 19
[2016-07-07] MEDS: OXYCODONE/ACETAMINOPHEN (5/325) TAB PO PRN (20:41)
[2016-07-07] MEDS: DOXAZOSIN 4 MG TAB PO SCH (20:41)
[2016-07-07] MEDS: ATORVASTATIN 10 MG TAB PO SCH (20:41)
[2016-07-07] MEDS: SENNA TAB PO SCH (20:41)
[2016-07-07] MEDS: FAT EMULSION 20% 250 ML IV SCH (21:17)
[2016-07-08] MEDS: TPN 1,000 ML IV SCH ×2 (05:09→21:09)
[2016-07-08 07:30] VITALS: BP 115/68; RESP 18
[2016-07-08] MEDS: FINASTERIDE 5 MG TAB PO SCH (08:06)
[2016-07-08] MEDS: AL HYDROX/MG HYDROX/SIMETH 30 ML CUP PO PRN (08:06)
[2016-07-08] MEDS: LIDOCAINE 5% PATCH TD SCH (08:06)
[2016-07-08] MEDS: DOCUSATE SODIUM 100 MG CAP PO SCH ×2 (08:07→21:07)
[2016-07-08] MEDS: ASPIRIN 81 MG TAB PO SCH (08:07)
[2016-07-08] MEDS: BUPROPION (XL) 150 MG TAB PO SCH (08:07)
[2016-07-08] MEDS: RANITIDINE 150 MG TAB PO SCH (08:07)
[2016-07-08] MEDS: GABAPENTIN 100 MG CAP PO SCH (08:07)
[2016-07-08] MEDS: ACCUCHECK XX SCH ×2 (08:07→21:00)
--- NOTE | 2016-07-08 12:37 | CONS ---
Date/Time of Note Date/Time of Note DATE: 07/08/16 TIME: 12:32 Consult Date/Type/Reason Admit Date/Time Jul 01, 2016 at 21:05 Subjective Patient complains of poor appetite and constipation, although RN reports pt had BM yesterday Objective cga bed mobility and ambulation moving extremities comfortably Vital Signs Date Time Temp Pulse Resp B/P Pulse Ox O2 Delivery O2 Flow Rate FiO2 07/07/16 19:55 97.7 105 19 142/68 95 07/06/16 08:00 Room Air Intake and Output 07/07/16 07/07/16 07/08/16 15:00 23:00 07:00 Intake Total 980 ml 990 ml 1450 ml Output Total 400 ml 200 ml 900 ml Balance 580 ml 790 ml 550 ml Results/Medications Result Diagram: 07/06/16 0620 07/05/16 0545 Results 24 hrs Laboratory Tests Test 07/07/16 12:41 07/07/16 17:10 07/07/16 21:15 07/08/16 07:53 Bedside Glucose 140 95 99 96 Medications Current Medications Ranitidine HCl (Zantac) 150 mg DAILY PO Last administered on 07/08/16 08:07; Admin Dose 150 MG; Start 07/02/16 at 09:00 Finasteride (Proscar) 5 mg DAILY PO Last administered on 07/08/16 08:06; Admin Dose 5 MG; Start 07/02/16 at 09:00 Ibuprofen (Motrin) 200 mg Q6H PRN PO PAIN; Start 07/01/16 at 23:00 Lidocaine (Lidoderm) 1 patch DAILY TD Last administered on 07/08/16 08:06; Admin Dose 1 PATCH; Start 07/02/16 at 09:00 Oxycodone/ Acetaminophen (Percocet (5/ 325)) 1 tab Q6H PRN PO PAIN Last administered on 07/07/16 20:41; Admin Dose 1 TAB; Start 07/01/16 at 23:00 Alprazolam (Xanax) 0.5 mg QHS PRN PO SLEEP; Start 07/01/16 at 23:00 Aspirin (Aspirin) 81 mg DAILY PO Last administered on 07/08/16 08:07; Admin Dose 81 MG; Start 07/02/16 at 09:00 Atorvastatin Calcium (Lipitor) 10 mg DAILY@21 PO Last administered on 07/07/16 20:41; Admin Dose 10 MG; Start 07/01/16 at 22:38 Bupropion HCl (Wellbutrin Xl) 300 mg DAILY PO Last administered on 07/08/16 08: 07; Admin Dose 300 MG; Start 07/02/16 at 09:00 Doxazosin Mesylate (Cardura) 8 mg 21 PO Last administered on 07/07/16 20:41; Admin Dose 8 MG; Start 07/01/16 at 23:00 Albuterol (Ventolin Hfa) 2 puff Q4H PRN INH SHORTNESS OF BREATH; Start at 23:00 Diagnostic Test (Pha) (Accucheck) 1 ea Q12 XX Last administered on 07/08/16 08: 07; Admin Dose 1 EA; Start 07/02/16 at 09:00 Acetaminophen (Tylenol Tab) 325 mg Q6H PRN PO PAIN AND OR ELEVATED TEMP Last administered on 07/01/16at 23:54; Admin Dose 325 MG; Start 07/01/16 at 23:06 Docusate Sodium (Colace) 100 mg BID PO Last administered on 07/08/16 08:07; Admin Dose 100 MG; Start 07/02/16 at 09:00 Senna (Senokot) 1 tab HS PO Last administered on 07/07/16 20:41; Admin Dose 1 TAB; Start 07/02/16 at 21:00 Bisacodyl (Dulcolax Supp) 10 mg DAILY PRN [place] CONSTIPATION Last administered on 07/06/16 15:13; Admin Dose 10 MG; Start 07/02/16 at 01:30 Magnesium Hydroxide (Milk Of Mag) 30 ml BID PRN PO CONSTIPATION; Start at 01:30 Lactulose (Enulose) 20 gm DAILY PRN PO CONSTIPATION; Start 07/02/16 at 01:30 Acetaminophen (Tylenol Tab) 650 mg Q4H PRN PO PAIN Last administered on 07:10; Admin Dose 650 MG; Start 07/02/16 at 01:30 Oxycodone HCl 5 mg 5 mg Q4H PRN PO MODERATE PAIN Last administered on 07/06/16 08:22; Admin Dose 5 MG; Start 07/02/16 at 04:07 Total Parenteral Nutrition 1,000 ml @ 133 mls/hr 21 IV Last administered on 21:17; Admin Dose 133 MLS/HR; Start 07/02/16 at 21:00 Total Parenteral Nutrition (Tpn) 1,000 ml @ 133 mls/hr 0430 IV Last administered on 07/08/16 05:09; Admin Dose 133 MLS/HR; Start 07/03/16 at 04:30 Miscellaneous Information 1 ea 1 ea NOTE XX ; Start 07/02/16 at 21:00 Fat Emulsion Intravenous (Liposyn Ii 20%) 250 ml @ 21 mls/hr 21 IV Last administered on 07/07/16 21:17; Admin Dose 21 MLS/HR; Start 07/02/16 at 21:00 Gabapentin (Neurontin) 100 mg DAILY PO Last administered on 07/08/16 08:07; Admin Dose 100 MG; Start 07/04/16 at 11:30 Al Hydrox/Mg Hydrox/Simethicone (Mag-Al Plus) 30 ml Q6H PRN PO GASTROINTESTINAL UPSET Last administered on 07/08/16 08:06; Admin Dose 30 ML; Start 07/07/16 at 13:00 Assessment/Plan Additional Assessment/Plan Rehab- Debility secondary to whipple/encephalopathy (improved) Continue activities as tolerated FEN- still on TPN, encourage po intake CAD/CABG HTN adenoCA GODWIN s/p CATIE QUIGLEY MD Jul 08, 2016 12:36
[2016-07-08] MEDS: OXYCODONE/ACETAMINOPHEN (5/325) TAB PO PRN (13:33)
[2016-07-08] MEDS: BISACODYL 10 MG SUPP PR PRN (16:02)
--- NOTE | 2016-07-08 17:51 | PN ---
Date/Time of Note Date/Time of Note DATE: 07/08/16 TIME: 17:50 Assessment/Plan VTE Prophylaxis VTE Prophylaxis Intervention: other Lines/Catheters IV Catheter Type (from Nrsg): PICC Line Central line still needed: Yes Urinary Cath still in place: No Assessment/Plan Chief Complaint/Hosp Course 1) debilitation - acute rehab 2) pancreatic ca - s/p whipple - on TPN currently but also taking oral nutrition Problems: Subjective 24 Hr Interval Summary Free Text/Dictation Unable to interview patient as he is not in room Exam/Review of Systems Vital Signs Vitals Vital Signs Date Time Temp Pulse Resp B/P Pulse Ox O2 Delivery O2 Flow Rate FiO2 07/08/16 07:30 97.4 110 18 115/68 96 07/06/16 08:00 Room Air Intake and Output 07/07/16 07/07/16 07/08/16 15:00 23:00 07:00 Intake Total 980 ml 990 ml 1450 ml Output Total 400 ml 200 ml 900 ml Balance 580 ml 790 ml 550 ml Exam Unable to examine the patient as he is not in room Results Result Diagram: 07/06/16 0620 07/05/16 0545 Results 24 hrs Laboratory Tests Test 07/07/16 21:15 07/08/16 07:53 Bedside Glucose 99 96 Medications Medications Current Medications Ranitidine HCl (Zantac) 150 mg DAILY PO Last administered on 07/08/16 08:07; Admin Dose 150 MG; Start 07/02/16 at 09:00 Finasteride (Proscar) 5 mg DAILY PO Last administered on 07/08/16 08:06; Admin Dose 5 MG; Start 07/02/16 at 09:00 Ibuprofen (Motrin) 200 mg Q6H PRN PO PAIN; Start 07/01/16 at 23:00 Lidocaine (Lidoderm) 1 patch DAILY TD Last administered on 07/08/16 08:06; Admin Dose 1 PATCH; Start 07/02/16 at 09:00 Oxycodone/ Acetaminophen (Percocet (5/ 325)) 1 tab Q6H PRN PO PAIN Last administered on 07/08/16 13:33; Admin Dose 1 TAB; Start 07/01/16 at 23:00 Alprazolam (Xanax) 0.5 mg QHS PRN PO SLEEP; Start 07/01/16 at 23:00 Aspirin (Aspirin) 81 mg DAILY PO Last administered on 07/08/16 08:07; Admin Dose 81 MG; Start 07/02/16 at 09:00 Atorvastatin Calcium (Lipitor) 10 mg DAILY@21 PO Last administered on 07/07/16 20:41; Admin Dose 10 MG; Start 07/01/16 at 22:38 Bupropion HCl (Wellbutrin Xl) 300 mg DAILY PO Last administered on 07/08/16 08: 07; Admin Dose 300 MG; Start 07/02/16 at 09:00 Doxazosin Mesylate (Cardura) 8 mg 21 PO Last administered on 07/07/16 20:41; Admin Dose 8 MG; Start 07/01/16 at 23:00 Albuterol (Ventolin Hfa) 2 puff Q4H PRN INH SHORTNESS OF BREATH; Start at 23:00 Diagnostic Test (Pha) (Accucheck) 1 ea Q12 XX Last administered on 07/08/16 08: 07; Admin Dose 1 EA; Start 07/02/16 at 09:00 Acetaminophen (Tylenol Tab) 325 mg Q6H PRN PO PAIN AND OR ELEVATED TEMP Last administered on 07/01/16at 23:54; Admin Dose 325 MG; Start 07/01/16 at 23:06 Docusate Sodium (Colace) 100 mg BID PO Last administered on 07/08/16 08:07; Admin Dose 100 MG; Start 07/02/16 at 09:00 Senna (Senokot) 1 tab HS PO Last administered on 07/07/16 20:41; Admin Dose 1 TAB; Start 07/02/16 at 21:00 Bisacodyl (Dulcolax Supp) 10 mg DAILY PRN [place] CONSTIPATION Last administered on 07/08/16 16:02; Admin Dose 10 MG; Start 07/02/16 at 01:30 Magnesium Hydroxide (Milk Of Mag) 30 ml BID PRN PO CONSTIPATION; Start at 01:30 Lactulose (Enulose) 20 gm DAILY PRN PO CONSTIPATION; Start 07/02/16 at 01:30 Acetaminophen (Tylenol Tab) 650 mg Q4H PRN PO PAIN Last administered on 07:10; Admin Dose 650 MG; Start 07/02/16 at 01:30 Oxycodone HCl 5 mg 5 mg Q4H PRN PO MODERATE PAIN Last administered on 07/06/16 08:22; Admin Dose 5 MG; Start 07/02/16 at 04:07 Total Parenteral Nutrition 1,000 ml @ 133 mls/hr 21 IV Last administered on 21:17; Admin Dose 133 MLS/HR; Start 07/02/16 at 21:00 Total Parenteral Nutrition (Tpn) 1,000 ml @ 133 mls/hr 0430 IV Last administered on 07/08/16 05:09; Admin Dose 133 MLS/HR; Start 07/03/16 at 04:30 Miscellaneous Information 1 ea 1 ea NOTE XX ; Start 07/02/16 at 21:00 Fat Emulsion Intravenous (Liposyn Ii 20%) 250 ml @ 21 mls/hr 21 IV Last administered on 07/07/16 21:17; Admin Dose 21 MLS/HR; Start 07/02/16 at 21:00 Gabapentin (Neurontin) 100 mg DAILY PO Last administered on 07/08/16 08:07; Admin Dose 100 MG; Start 07/04/16 at 11:30 Al Hydrox/Mg Hydrox/Simethicone (Mag-Al Plus) 30 ml Q6H PRN PO GASTROINTESTINAL UPSET Last administered on 07/08/16 08:06; Admin Dose 30 ML; Start 07/07/16 at 13:00 CAROL RENO Jul 08, 2016 17:51
[2016-07-08] MEDS: SENNA TAB PO SCH (21:07)
[2016-07-08] MEDS: ATORVASTATIN 10 MG TAB PO SCH (21:07)
[2016-07-08] MEDS: DOXAZOSIN 4 MG TAB PO SCH (21:08)
[2016-07-08] MEDS: FAT EMULSION 20% 250 ML IV SCH (21:09)
[2016-07-08 21:26] VITALS: BP 141/70; RESP 18
[2016-07-09] MEDS: TPN 1,000 ML IV SCH ×2 (05:25→21:16)
[2016-07-09 07:05] VITALS: BP 140/66; RESP 18
[2016-07-09] MEDS: AL HYDROX/MG HYDROX/SIMETH 30 ML CUP PO PRN (07:20)
[2016-07-09 08:00] VITALS: BP 140/66; PULSE 100; RESP 20
[2016-07-09] MEDS: RANITIDINE 150 MG TAB PO SCH (08:22)
[2016-07-09] MEDS: BUPROPION (XL) 150 MG TAB PO SCH (08:22)
[2016-07-09] MEDS: FINASTERIDE 5 MG TAB PO SCH (08:22)
[2016-07-09] MEDS: ASPIRIN 81 MG TAB PO SCH (08:22)
[2016-07-09] MEDS: OXYCODONE/ACETAMINOPHEN (5/325) TAB PO PRN ×2 (08:22→21:13)
[2016-07-09] MEDS: DOCUSATE SODIUM 100 MG CAP PO SCH ×2 (08:23→21:06)
[2016-07-09] MEDS: GABAPENTIN 100 MG CAP PO SCH (08:23)
[2016-07-09] MEDS: LIDOCAINE 5% PATCH TD SCH (08:23)
[2016-07-09] MEDS: ACCUCHECK XX SCH ×2 (09:34→21:06)
--- NOTE | 2016-07-09 12:13 | PN ---
Date/Time of Note Date/Time of Note DATE: 07/09/16 TIME: 12:01 Assessment/Plan VTE Prophylaxis VTE Prophylaxis Intervention: ambulation, other Lines/Catheters IV Catheter Type (from Nrsg): PICC Line Central line still needed: Yes Urinary Cath still in place: No Reason Cath still needed: other (indicate) Assessment/Plan Assessment/Plan 1. Debility secondary to pancreatic CA s/p whipple procedure, with impaired mobility/gait/ADLs. Medical management per internal medicine and oncology. Remains on TPN, continue to monitor PO intake. Continue PT/OT. Gait improving 150ft with CGA with FWW, dynamic standing fair. 2. CAD s/p CABG. Continue medical management. 3. HTN. BP in fair control, managed per internal medicine. 4. Anemia. Continue to monitor hemoglobin/hematocrit. 5. Hyperlipidemia. Continue Statin. 6. Chronic low back pain with history of spinal stenosis. Continue pain control. Subjective 24 Hr Interval Summary Free Text/Dictation Rehab progress note Subjective: Nursing reports no acute overnight events. Patient reports currently some stomach upset. Nursing reports small BM earlier. ROS: Denies headache, no dizziness, no chest pain, no shortness of breath, no vomiting, no chills. Exam/Review of Systems Vital Signs Vitals Vital Signs Date Time Temp Pulse Resp B/P Pulse Ox O2 Delivery O2 Flow Rate FiO2 07/09/16 08:00 97.8 100 20 140/66 96 Room Air Intake and Output 07/08/16 07/08/16 07/09/16 15:00 23:00 07:00 Intake Total 866 ml 240 ml 1740 ml Output Total 301 ml 150 ml Balance 565 ml 90 ml 1740 ml Exam General: Awake, alert, in no acute distress CV: Regular rate, s1s2 Lungs: Respirations are nonlabored, no wheezing Abdomen soft, bowel sounds present, midline surgical site c/d/i Extremities without cyanosis, no edema Neuro: Follows simple commands. Moves all extremities symmetrically with antigravity strength. Results Result Diagram: 07/06/16 0620 07/05/16 0545 Results 24 hrs Laboratory Tests Test 07/08/16 20:49 07/09/16 09:29 Bedside Glucose 94 123 Medications Medications Current Medications Ranitidine HCl (Zantac) 150 mg DAILY PO Last administered on 07/09/16t 08:22; Admin Dose 150 MG; Start 07/02/16 at 09:00 Finasteride (Proscar) 5 mg DAILY PO Last administered on 07/09/16 08:22; Admin Dose 5 MG; Start 07/02/16 at 09:00 Ibuprofen (Motrin) 200 mg Q6H PRN PO PAIN; Start 07/01/16 at 23:00 Lidocaine (Lidoderm) 1 patch DAILY TD Last administered on 07/08/16 08:06; Admin Dose 1 PATCH; Start 07/02/16 at 09:00 Oxycodone/ Acetaminophen (Percocet (5/ 325)) 1 tab Q6H PRN PO PAIN Last administered on 07/09/16 08:22; Admin Dose 1 TAB; Start 07/01/16 at 23:00 Alprazolam (Xanax) 0.5 mg QHS PRN PO SLEEP; Start 07/01/16 at 23:00 Aspirin (Aspirin) 81 mg DAILY PO Last administered on 07/09/16 08:22; Admin Dose 81 MG; Start 07/02/16 at 09:00 Atorvastatin Calcium (Lipitor) 10 mg DAILY@21 PO Last administered on 07/08/16 21:07; Admin Dose 10 MG; Start 07/01/16 at 22:38 Bupropion HCl (Wellbutrin Xl) 300 mg DAILY PO Last administered on 07/09/16 08: 22; Admin Dose 300 MG; Start 07/02/16 at 09:00 Doxazosin Mesylate (Cardura) 8 mg 21 PO Last administered on 07/08/16 21:08; Admin Dose 8 MG; Start 07/01/16 at 23:00 Albuterol (Ventolin Hfa) 2 puff Q4H PRN INH SHORTNESS OF BREATH; Start at 23:00 Diagnostic Test (Pha) (Accucheck) 1 ea Q12 XX Last administered on 07/09/16 09: 34; Admin Dose 1 EA; Start 07/02/16 at 09:00 Acetaminophen (Tylenol Tab) 325 mg Q6H PRN PO PAIN AND OR ELEVATED TEMP Last administered on 07/01/16at 23:54; Admin Dose 325 MG; Start 07/01/16 at 23:06 Docusate Sodium (Colace) 100 mg BID PO Last administered on 07/09/16 08:23; Admin Dose 100 MG; Start 07/02/16 at 09:00 Senna (Senokot) 1 tab HS PO Last administered on 07/08/16 21:07; Admin Dose 1 TAB; Start 07/02/16 at 21:00 Bisacodyl (Dulcolax Supp) 10 mg DAILY PRN [place] CONSTIPATION Last administered on 07/08/16 16:02; Admin Dose 10 MG; Start 07/02/16 at 01:30 Magnesium Hydroxide (Milk Of Mag) 30 ml BID PRN PO CONSTIPATION; Start at 01:30 Lactulose (Enulose) 20 gm DAILY PRN PO CONSTIPATION; Start 07/02/16 at 01:30 Acetaminophen (Tylenol Tab) 650 mg Q4H PRN PO PAIN Last administered on 07:10; Admin Dose 650 MG; Start 07/02/16 at 01:30 Oxycodone HCl 5 mg 5 mg Q4H PRN PO MODERATE PAIN Last administered on 07/06/16 08:22; Admin Dose 5 MG; Start 07/02/16 at 04:07 Total Parenteral Nutrition 1,000 ml @ 133 mls/hr 21 IV Last administered on 21:09; Admin Dose 133 MLS/HR; Start 07/02/16 at 21:00 Total Parenteral Nutrition (Tpn) 1,000 ml @ 133 mls/hr 0430 IV Last administered on 07/09/16 05:25; Admin Dose 133 MLS/HR; Start 07/03/16 at 04:30 Miscellaneous Information 1 ea 1 ea NOTE XX ; Start 07/02/16 at 21:00 Fat Emulsion Intravenous (Liposyn Ii 20%) 250 ml @ 21 mls/hr 21 IV Last administered on 07/08/16 21:09; Admin Dose 21 MLS/HR; Start 07/02/16 at 21:00 Gabapentin (Neurontin) 100 mg DAILY PO Last administered on 07/09/16 08:23; Admin Dose 100 MG; Start 07/04/16 at 11:30 Al Hydrox/Mg Hydrox/Simethicone (Mag-Al Plus) 30 ml Q6H PRN PO GASTROINTESTINAL UPSET Last administered on 07/09/16 07:20; Admin Dose 30 ML; Start 07/07/16 at 13:00 TENNILLE WILLIAM Jul 09, 2016 12:13
--- NOTE | 2016-07-09 12:56 | PN ---
Date/Time of Note Date/Time of Note DATE: 07/09/16 TIME: 12:55 Assessment/Plan VTE Prophylaxis VTE Prophylaxis Intervention: other Lines/Catheters IV Catheter Type (from Nrsg): PICC Line Central line still needed: Yes Urinary Cath still in place: No Assessment/Plan Chief Complaint/Hosp Course 1) debilitation - acute rehab 2) pancreatic ca - s/p whipple - on TPN currently but also taking oral nutrition Problems: Subjective 24 Hr Interval Summary Free Text/Dictation Patient doing ok, no complaints Exam/Review of Systems Vital Signs Vitals Vital Signs Date Time Temp Pulse Resp B/P Pulse Ox O2 Delivery O2 Flow Rate FiO2 07/09/16 08:00 97.8 100 20 140/66 96 Room Air Intake and Output 07/08/16 07/08/16 07/09/16 14:59 22:59 06:59 Intake Total 866 ml 240 ml 200 ml Output Total 301 ml 150 ml Balance 565 ml 90 ml 200 ml Exam Constitutional: well developed Head: atraumatic, normocephalic Neck: supple Respiratory: clear to auscultation Cardiovascular: regular rate and rhythm Gastrointestinal: non-tender, soft Results Result Diagram: 07/06/16 0620 07/05/16 0545 Results 24 hrs Laboratory Tests Test 07/08/16 20:49 07/09/16 09:29 Bedside Glucose 94 123 Medications Medications Current Medications Ranitidine HCl (Zantac) 150 mg DAILY PO Last administered on 07/09/16 08:22; Admin Dose 150 MG; Start 07/02/16 at 09:00 Finasteride (Proscar) 5 mg DAILY PO Last administered on 07/09/16 08:22; Admin Dose 5 MG; Start 07/02/16 at 09:00 Ibuprofen (Motrin) 200 mg Q6H PRN PO PAIN; Start 07/01/16 at 23:00 Lidocaine (Lidoderm) 1 patch DAILY TD Last administered on 07/08/16 08:06; Admin Dose 1 PATCH; Start 07/02/16 at 09:00 Oxycodone/ Acetaminophen (Percocet (5/ 325)) 1 tab Q6H PRN PO PAIN Last administered on 07/09/16 08:22; Admin Dose 1 TAB; Start 07/01/16 at 23:00 Alprazolam (Xanax) 0.5 mg QHS PRN PO SLEEP; Start 07/01/16 at 23:00 Aspirin (Aspirin) 81 mg DAILY PO Last administered on 07/09/16 08:22; Admin Dose 81 MG; Start 07/02/16 at 09:00 Atorvastatin Calcium (Lipitor) 10 mg DAILY@21 PO Last administered on 07/08/16 21:07; Admin Dose 10 MG; Start 07/01/16 at 22:38 Bupropion HCl (Wellbutrin Xl) 300 mg DAILY PO Last administered on 07/09/16 08: 22; Admin Dose 300 MG; Start 07/02/16 at 09:00 Doxazosin Mesylate (Cardura) 8 mg 21 PO Last administered on 07/08/16 21:08; Admin Dose 8 MG; Start 07/01/16 at 23:00 Albuterol (Ventolin Hfa) 2 puff Q4H PRN INH SHORTNESS OF BREATH; Start at 23:00 Diagnostic Test (Pha) (Accucheck) 1 ea Q12 XX Last administered on 07/09/16 09: 34; Admin Dose 1 EA; Start 07/02/16 at 09:00 Acetaminophen (Tylenol Tab) 325 mg Q6H PRN PO PAIN AND OR ELEVATED TEMP Last administered on 07/01/16at 23:54; Admin Dose 325 MG; Start 07/01/16 at 23:06 Docusate Sodium (Colace) 100 mg BID PO Last administered on 07/09/16 08:23; Admin Dose 100 MG; Start 07/02/16 at 09:00 Senna (Senokot) 1 tab HS PO Last administered on 07/08/16 21:07; Admin Dose 1 TAB; Start 07/02/16 at 21:00 Bisacodyl (Dulcolax Supp) 10 mg DAILY PRN [place] CONSTIPATION Last administered on 07/08/16 16:02; Admin Dose 10 MG; Start 07/02/16 at 01:30 Magnesium Hydroxide (Milk Of Mag) 30 ml BID PRN PO CONSTIPATION; Start at 01:30 Lactulose (Enulose) 20 gm DAILY PRN PO CONSTIPATION; Start 07/02/16 at 01:30 Acetaminophen (Tylenol Tab) 650 mg Q4H PRN PO PAIN Last administered on 07:10; Admin Dose 650 MG; Start 07/02/16 at 01:30 Oxycodone HCl 5 mg 5 mg Q4H PRN PO MODERATE PAIN Last administered on 07/06/16 08:22; Admin Dose 5 MG; Start 07/02/16 at 04:07 Total Parenteral Nutrition 1,000 ml @ 133 mls/hr 21 IV Last administered on 21:09; Admin Dose 133 MLS/HR; Start 07/02/16 at 21:00 Total Parenteral Nutrition (Tpn) 1,000 ml @ 133 mls/hr 0430 IV Last administered on 07/09/16 05:25; Admin Dose 133 MLS/HR; Start 07/03/16 at 04:30 Miscellaneous Information 1 ea 1 ea NOTE XX ; Start 07/02/16 at 21:00 Fat Emulsion Intravenous (Liposyn Ii 20%) 250 ml @ 21 mls/hr 21 IV Last administered on 07/08/16 21:09; Admin Dose 21 MLS/HR; Start 07/02/16 at 21:00 Gabapentin (Neurontin) 100 mg DAILY PO Last administered on 07/09/16 08:23; Admin Dose 100 MG; Start 07/04/16 at 11:30 Al Hydrox/Mg Hydrox/Simethicone (Mag-Al Plus) 30 ml Q6H PRN PO GASTROINTESTINAL UPSET Last administered on 07/09/16 07:20; Admin Dose 30 ML; Start 07/07/16 at 13:00 CAROL RENO Jul 09, 2016 12:56
[2016-07-09] MEDS: BISACODYL 10 MG SUPP PR PRN (17:18)
[2016-07-09 20:00] VITALS: BP 149/77; PULSE 100; RESP 20
[2016-07-09] MEDS ORDERED: ALTEPLASE (CATHFLO) 2 MG INJ CATHETER PRN (20:30)
[2016-07-09] MEDS: SENNA TAB PO SCH (21:06)
[2016-07-09] MEDS: FAT EMULSION 20% 250 ML IV SCH (21:06)
[2016-07-09] MEDS: DOXAZOSIN 4 MG TAB PO SCH (21:06)
[2016-07-09] MEDS: ATORVASTATIN 10 MG TAB PO SCH (21:06)
[2016-07-10] MEDS: TPN 1,000 ML IV SCH ×2 (04:52→21:03)
[2016-07-10 07:30] VITALS: BP 136/65; RESP 20
[2016-07-10 08:00] VITALS: BP 136/65; PULSE 102; RESP 20
[2016-07-10] MEDS: LIDOCAINE 5% PATCH TD SCH (08:01)
[2016-07-10] MEDS: ASPIRIN 81 MG TAB PO SCH (08:02)
[2016-07-10] MEDS: GABAPENTIN 100 MG CAP PO SCH (08:02)
[2016-07-10] MEDS: OXYCODONE/ACETAMINOPHEN (5/325) TAB PO PRN ×2 (08:02→19:22)
[2016-07-10] MEDS: FINASTERIDE 5 MG TAB PO SCH (08:02)
[2016-07-10] MEDS: RANITIDINE 150 MG TAB PO SCH (08:02)
[2016-07-10] MEDS: BUPROPION (XL) 150 MG TAB PO SCH (08:03)
[2016-07-10] MEDS: DOCUSATE SODIUM 100 MG CAP PO SCH ×2 (08:03→21:04)
[2016-07-10 08:08] LABS: POTASSIUM 4.8 mmol/L (3.5-5.1)
[2016-07-10 08:10] LABS: CREATININE 0.74 mg/dl (0.61-1.24)
[2016-07-10 08:11] LABS: CALCIUM 8.6 mg/dl (8.4-10.2); PHOSPHORUS 3.7 mg/dl (2.5-4.9)
[2016-07-10 08:12] LABS: MAGNESIUM 2.2 mg/dl (1.7-2.5)
[2016-07-10] MEDS: PE/SHARK OIL/MO/PETROL 30 GM OINT PR SCH ×2 (08:44→21:06)
[2016-07-10] MEDS: ACCUCHECK XX SCH ×2 (09:01→21:06)
--- NOTE | 2016-07-10 11:34 | PN ---
Date/Time of Note Date/Time of Note DATE: 07/10/16 TIME: 11:31 Assessment/Plan VTE Prophylaxis VTE Prophylaxis Intervention: ambulation, SCD's, other Lines/Catheters IV Catheter Type (from Nrsg): PICC Line Central line still needed: Yes Urinary Cath still in place: No Reason Cath still needed: other (indicate) Assessment/Plan Assessment/Plan 1. Debility secondary to pancreatic CA s/p whipple procedure, with impaired mobility/gait/ADLs. Medical management per internal medicine and oncology. Remains on TPN with decreased PO intake, continue to monitor. Continue PT/OT. Supervision for grooming and upper body dressing. Stand by assist for lower body dressing. 2. CAD s/p CABG. Continue medical management. 3. HTN. Continue to monitor BP, internal medicine managing. 4. Anemia. Continue to monitor hemoglobin/hematocrit. 5. Hyperlipidemia. Continue Statin. 6. Chronic low back pain with history of spinal stenosis. Continue pain control. Subjective 24 Hr Interval Summary Free Text/Dictation Rehab progress note Subjective: Reports feeling better after having BM. Slept better last night. ROS: Denies chest pain, no shortness of breath, no chills, no abdominal pain, no nausea, no vomiting. Exam/Review of Systems Vital Signs Vitals Vital Signs Date Time Temp Pulse Resp B/P Pulse Ox O2 Delivery O2 Flow Rate FiO2 07/10/16 08:00 97.6 102 20 136/65 96 Room Air Intake and Output 07/09/16 07/09/16 07/10/16 15:00 23:00 07:00 Intake Total 786 ml 980 ml 900 ml Output Total 800 ml 750 ml 1150 ml Balance -14 ml 230 ml -250 ml Exam General: Awake, alert, in no acute distress CV: Regular rate, s1s2 audible Lungs: Respirations are nonlabored, no wheezing Abdomen soft, +bowel sounds, +midline surgical site clean and intact Extremities without cyanosis, no new swelling. Neuro: No new focal changes. Follows simple commands. Results Result Diagram: 07/06/16 0620 07/10/16 0701 Results 24 hrs Laboratory Tests Test 07/09/16 21:09 07/10/16 07:01 07/10/16 08:59 Bedside Glucose 88 131 Anion Gap 15 Blood Urea Nitrogen 19 Calcium Level 8.6 Carbon Dioxide Level 25 Chloride Level 102 Creatinine 0.74 Glucose Level 137 Magnesium Level 2.2 Phosphorus Level 3.7 Potassium Level 4.8 Sodium Level 137 Medications Medications Current Medications Ranitidine HCl (Zantac) 150 mg DAILY PO Last administered on 07/10/16 08:02; Admin Dose 150 MG; Start 07/02/16 at 09:00 Finasteride (Proscar) 5 mg DAILY PO Last administered on 07/10/16 08:02; Admin Dose 5 MG; Start 07/02/16 at 09:00 Ibuprofen (Motrin) 200 mg Q6H PRN PO PAIN; Start 07/01/16 at 23:00 Lidocaine (Lidoderm) 1 patch DAILY TD Last administered on 07/08/16 08:06; Admin Dose 1 PATCH; Start 07/02/16 at 09:00 Oxycodone/ Acetaminophen (Percocet (5/ 325)) 1 tab Q6H PRN PO PAIN Last administered on 07/10/16 08:02; Admin Dose 1 TAB; Start 07/01/16 at 23:00 Alprazolam (Xanax) 0.5 mg QHS PRN PO SLEEP; Start 07/01/16 at 23:00 Aspirin (Aspirin) 81 mg DAILY PO Last administered on 07/10/16 08:02; Admin Dose 81 MG; Start 07/02/16 at 09:00 Atorvastatin Calcium (Lipitor) 10 mg DAILY@21 PO Last administered on 07/09/16 21:06; Admin Dose 10 MG; Start 07/01/16 at 22:38 Bupropion HCl (Wellbutrin Xl) 300 mg DAILY PO Last administered on 07/10/16 08: 03; Admin Dose 300 MG; Start 07/02/16 at 09:00 Doxazosin Mesylate (Cardura) 8 mg 21 PO Last administered on 07/09/16 21:06; Admin Dose 8 MG; Start 07/01/16 at 23:00 Albuterol (Ventolin Hfa) 2 puff Q4H PRN INH SHORTNESS OF BREATH; Start at 23:00 Diagnostic Test (Pha) (Accucheck) 1 ea Q12 XX Last administered on 07/10/16 09: 01; Admin Dose 1 EA; Start 07/02/16 at 09:00 Acetaminophen (Tylenol Tab) 325 mg Q6H PRN PO PAIN AND OR ELEVATED TEMP Last administered on 07/01/16at 23:54; Admin Dose 325 MG; Start 07/01/16 at 23:06 Docusate Sodium (Colace) 100 mg BID PO Last administered on 07/09/16 21:06; Admin Dose 100 MG; Start 07/02/16 at 09:00 Senna (Senokot) 1 tab HS PO Last administered on 07/09/16 21:06; Admin Dose 1 TAB; Start 07/02/16 at 21:00 Bisacodyl (Dulcolax Supp) 10 mg DAILY PRN [place] CONSTIPATION Last administered on 07/09/16 17:18; Admin Dose 10 MG; Start 07/02/16 at 01:30 Magnesium Hydroxide (Milk Of Mag) 30 ml BID PRN PO CONSTIPATION; Start at 01:30 Lactulose (Enulose) 20 gm DAILY PRN PO CONSTIPATION; Start 07/02/16 at 01:30 Acetaminophen (Tylenol Tab) 650 mg Q4H PRN PO PAIN Last administered on 07:10; Admin Dose 650 MG; Start 07/02/16 at 01:30 Oxycodone HCl 5 mg 5 mg Q4H PRN PO MODERATE PAIN Last administered on 07/06/16 08:22; Admin Dose 5 MG; Start 07/02/16 at 04:07 Total Parenteral Nutrition 1,000 ml @ 133 mls/hr 21 IV Last administered on 21:16; Admin Dose 133 MLS/HR; Start 07/02/16 at 21:00 Total Parenteral Nutrition (Tpn) 1,000 ml @ 133 mls/hr 0430 IV Last administered on 07/10/16 04:52; Admin Dose 133 MLS/HR; Start 07/03/16 at 04:30 Miscellaneous Information 1 ea 1 ea NOTE XX ; Start 07/02/16 at 21:00 Fat Emulsion Intravenous (Liposyn Ii 20%) 250 ml @ 21 mls/hr 21 IV Last administered on 07/09/16 21:06; Admin Dose 21 MLS/HR; Start 07/02/16 at 21:00 Gabapentin (Neurontin) 100 mg DAILY PO Last administered on 07/10/16 08:02; Admin Dose 100 MG; Start 07/04/16 at 11:30 Al Hydrox/Mg Hydrox/Simethicone (Mag-Al Plus) 30 ml Q6H PRN PO GASTROINTESTINAL UPSET Last administered on 07/09/16 07:20; Admin Dose 30 ML; Start 07/07/16 at 13:00 Phenyleph/Shark Oil/Min Oil/Petrol (Formulation R Oint) 1 applic BID [place] Last administered on 07/10/16 08:44; Admin Dose 1 APPLIC; Start 07/10/16 at 08:17 TENNILLE WILLIAM Jul 10, 2016 11:34
--- NOTE | 2016-07-10 12:20 | PN ---
Date/Time of Note Date/Time of Note DATE: 07/10/16 TIME: 12:20 Assessment/Plan VTE Prophylaxis VTE Prophylaxis Intervention: other Lines/Catheters IV Catheter Type (from Nrsg): PICC Line Central line still needed: Yes Urinary Cath still in place: No Assessment/Plan Chief Complaint/Hosp Course 1) debilitation - acute rehab 2) pancreatic ca - s/p whipple - on TPN currently but also taking oral nutrition Problems: Subjective 24 Hr Interval Summary Free Text/Dictation Patient is doing well Exam/Review of Systems Vital Signs Vitals Vital Signs Date Time Temp Pulse Resp B/P Pulse Ox O2 Delivery O2 Flow Rate FiO2 07/10/16 08:00 97.6 102 20 136/65 96 Room Air Intake and Output 07/09/16 07/09/16 07/10/16 15:00 23:00 07:00 Intake Total 786 ml 980 ml 900 ml Output Total 800 ml 750 ml 1150 ml Balance -14 ml 230 ml -250 ml Exam Constitutional: well developed Neck: supple Respiratory: clear to auscultation Cardiovascular: regular rate and rhythm Gastrointestinal: non-tender, soft Results Result Diagram: 07/06/16 0620 07/10/16 0701 Results 24 hrs Laboratory Tests Test 07/09/16 21:09 07/10/16 07:01 07/10/16 08:59 Bedside Glucose 88 131 Anion Gap 15 Blood Urea Nitrogen 19 Calcium Level 8.6 Carbon Dioxide Level 25 Chloride Level 102 Creatinine 0.74 Glucose Level 137 Magnesium Level 2.2 Phosphorus Level 3.7 Potassium Level 4.8 Sodium Level 137 Medications Medications Current Medications Ranitidine HCl (Zantac) 150 mg DAILY PO Last administered on 07/10/16 08:02; Admin Dose 150 MG; Start 07/02/16 at 09:00 Finasteride (Proscar) 5 mg DAILY PO Last administered on 07/10/16 08:02; Admin Dose 5 MG; Start 07/02/16 at 09:00 Ibuprofen (Motrin) 200 mg Q6H PRN PO PAIN; Start 07/01/16 at 23:00 Lidocaine (Lidoderm) 1 patch DAILY TD Last administered on 07/08/16 08:06; Admin Dose 1 PATCH; Start 07/02/16 at 09:00 Oxycodone/ Acetaminophen (Percocet (5/ 325)) 1 tab Q6H PRN PO PAIN Last administered on 07/10/16 08:02; Admin Dose 1 TAB; Start 07/01/16 at 23:00 Alprazolam (Xanax) 0.5 mg QHS PRN PO SLEEP; Start 07/01/16 at 23:00 Aspirin (Aspirin) 81 mg DAILY PO Last administered on 07/10/16 08:02; Admin Dose 81 MG; Start 07/02/16 at 09:00 Atorvastatin Calcium (Lipitor) 10 mg DAILY@21 PO Last administered on 07/09/16 21:06; Admin Dose 10 MG; Start 07/01/16 at 22:38 Bupropion HCl (Wellbutrin Xl) 300 mg DAILY PO Last administered on 07/10/16 08: 03; Admin Dose 300 MG; Start 07/02/16 at 09:00 Doxazosin Mesylate (Cardura) 8 mg 21 PO Last administered on 07/09/16 21:06; Admin Dose 8 MG; Start 07/01/16 at 23:00 Albuterol (Ventolin Hfa) 2 puff Q4H PRN INH SHORTNESS OF BREATH; Start at 23:00 Diagnostic Test (Pha) (Accucheck) 1 ea Q12 XX Last administered on 07/10/16 09: 01; Admin Dose 1 EA; Start 07/02/16 at 09:00 Acetaminophen (Tylenol Tab) 325 mg Q6H PRN PO PAIN AND OR ELEVATED TEMP Last administered on 07/01/16at 23:54; Admin Dose 325 MG; Start 07/01/16 at 23:06 Docusate Sodium (Colace) 100 mg BID PO Last administered on 07/09/16 21:06; Admin Dose 100 MG; Start 07/02/16 at 09:00 Senna (Senokot) 1 tab HS PO Last administered on 07/09/16 21:06; Admin Dose 1 TAB; Start 07/02/16 at 21:00 Bisacodyl (Dulcolax Supp) 10 mg DAILY PRN [place] CONSTIPATION Last administered on 07/09/16 17:18; Admin Dose 10 MG; Start 07/02/16 at 01:30 Magnesium Hydroxide (Milk Of Mag) 30 ml BID PRN PO CONSTIPATION; Start at 01:30 Lactulose (Enulose) 20 gm DAILY PRN PO CONSTIPATION; Start 07/02/16 at 01:30 Acetaminophen (Tylenol Tab) 650 mg Q4H PRN PO PAIN Last administered on 07:10; Admin Dose 650 MG; Start 07/02/16 at 01:30 Oxycodone HCl 5 mg 5 mg Q4H PRN PO MODERATE PAIN Last administered on 07/06/16 08:22; Admin Dose 5 MG; Start 07/02/16 at 04:07 Total Parenteral Nutrition 1,000 ml @ 133 mls/hr 21 IV Last administered on 21:16; Admin Dose 133 MLS/HR; Start 07/02/16 at 21:00 Total Parenteral Nutrition (Tpn) 1,000 ml @ 133 mls/hr 0430 IV Last administered on 07/10/16 04:52; Admin Dose 133 MLS/HR; Start 07/03/16 at 04:30 Miscellaneous Information 1 ea 1 ea NOTE XX ; Start 07/02/16 at 21:00 Fat Emulsion Intravenous (Liposyn Ii 20%) 250 ml @ 21 mls/hr 21 IV Last administered on 07/09/16 21:06; Admin Dose 21 MLS/HR; Start 07/02/16 at 21:00 Gabapentin (Neurontin) 100 mg DAILY PO Last administered on 07/10/16 08:02; Admin Dose 100 MG; Start 07/04/16 at 11:30 Al Hydrox/Mg Hydrox/Simethicone (Mag-Al Plus) 30 ml Q6H PRN PO GASTROINTESTINAL UPSET Last administered on 07/09/16 07:20; Admin Dose 30 ML; Start 07/07/16 at 13:00 Phenyleph/Shark Oil/Min Oil/Petrol (Formulation R Oint) 1 applic BID [place] Last administered on 07/10/16 08:44; Admin Dose 1 APPLIC; Start 07/10/16 at 08:17 CAROL RENO Jul 10, 2016 12:20
[2016-07-10 18:19] VITALS: BP 137/64; PULSE 108; RESP 18
[2016-07-10 19:58] VITALS: BP 128/71; RESP 19
[2016-07-10] MEDS: FAT EMULSION 20% 250 ML IV SCH (21:03)
[2016-07-10] MEDS: ATORVASTATIN 10 MG TAB PO SCH (21:04)
[2016-07-10] MEDS: SENNA TAB PO SCH (21:04)
[2016-07-10] MEDS: DOXAZOSIN 4 MG TAB PO SCH (21:06)
[2016-07-11] MEDS: TPN 1,000 ML IV SCH ×2 (04:39→21:11)
[2016-07-11] MEDS: OXYCODONE/ACETAMINOPHEN (5/325) TAB PO PRN ×2 (06:30→20:11)
[2016-07-11 07:30] VITALS: BP 139/69; RESP 18
[2016-07-11 08:00] VITALS: BP 139/69; PULSE 104; RESP 18
[2016-07-11] MEDS: LIDOCAINE 5% PATCH TD SCH (09:00)
[2016-07-11] MEDS: PE/SHARK OIL/MO/PETROL 30 GM OINT PR SCH ×2 (09:00→20:13)
[2016-07-11] MEDS: BUPROPION (XL) 150 MG TAB PO SCH (10:44)
[2016-07-11] MEDS: ASPIRIN 81 MG TAB PO SCH (10:44)
[2016-07-11] MEDS: GABAPENTIN 100 MG CAP PO SCH (10:44)
[2016-07-11] MEDS: RANITIDINE 150 MG TAB PO SCH (10:44)
[2016-07-11] MEDS: DOCUSATE SODIUM 100 MG CAP PO SCH ×2 (10:44→20:11)
[2016-07-11] MEDS: FINASTERIDE 5 MG TAB PO SCH (10:45)
[2016-07-11] MEDS: ACCUCHECK XX SCH ×2 (10:51→20:15)
[2016-07-11] MEDS ORDERED: ONDANSETRON 4 MG TAB PO PRN ×2 (12:51→13:00)
--- NOTE | 2016-07-11 13:07 | CONS ---
Date/Time of Note Date/Time of Note DATE: 07/11/16 TIME: 13:06 Consult Date/Type/Reason Admit Date/Time Jul 01, 2016 at 21:05 Subjective Long d/w daughter regarding current functional status and anrticipated dc needs. She is in agreement with DC Monday Objective Vital Signs Date Time Temp Pulse Resp B/P Pulse Ox O2 Delivery O2 Flow Rate FiO2 07/11/16 08:00 97.9 104 18 139/69 96 Room Air Intake and Output 07/10/16 07/10/16 07/11/16 15:00 23:00 07:00 Intake Total 306 ml 1290 ml 1250 ml Output Total 1400 ml 950 ml Balance 306 ml -110 ml 300 ml INTERDISCIPLINARY TEAM CONFERENCE BOWEL- Cont BLADDER-Cont SKIN- intact OT- DRESSING-sba/min BATHING-min TOILETING-sba/min PT- BED MOBILITY-sba TRANSFERS-sba AMBULATION-cga 150 feet SPEECH- COGNITION-s/NC DYPHAGIA A/P- Interdisciplinary team conference held today. Please see interdisciplinary sheet. Working toward d.c. on 07/13 with post discharge follow up of physical therapy, occupational therapy. Results/Medications Result Diagram: 07/10/16 0701 Results 24 hrs Laboratory Tests Test 07/10/16 20:14 07/11/16 07:49 07/11/16 10:51 Bedside Glucose 98 153 117 Medications Current Medications Ranitidine HCl (Zantac) 150 mg DAILY PO Last administered on 07/11/16 10:44; Admin Dose 150 MG; Start 07/02/16 at 09:00 Finasteride (Proscar) 5 mg DAILY PO Last administered on 07/11/16 10:45; Admin Dose 5 MG; Start 07/02/16 at 09:00 Ibuprofen (Motrin) 200 mg Q6H PRN PO PAIN; Start 07/01/16 at 23:00 Lidocaine (Lidoderm) 1 patch DAILY TD Last administered on 07/08/16 08:06; Admin Dose 1 PATCH; Start 07/02/16 at 09:00 Oxycodone/ Acetaminophen (Percocet (5/ 325)) 1 tab Q6H PRN PO PAIN Last administered on 07/11/16 06:30; Admin Dose 1 TAB; Start 07/01/16 at 23:00 Alprazolam (Xanax) 0.5 mg QHS PRN PO SLEEP; Start 07/01/16 at 23:00 Aspirin (Aspirin) 81 mg DAILY PO Last administered on 07/11/16 10:44; Admin Dose 81 MG; Start 07/02/16 at 09:00 Atorvastatin Calcium (Lipitor) 10 mg DAILY@21 PO Last administered on 07/10/16 21:04; Admin Dose 10 MG; Start 07/01/16 at 22:38 Bupropion HCl (Wellbutrin Xl) 300 mg DAILY PO Last administered on 07/11/16 10: 44; Admin Dose 300 MG; Start 07/02/16 at 09:00 Doxazosin Mesylate (Cardura) 8 mg 21 PO Last administered on 07/10/16 21:06; Admin Dose 8 MG; Start 07/01/16 at 23:00 Albuterol (Ventolin Hfa) 2 puff Q4H PRN INH SHORTNESS OF BREATH; Start at 23:00 Diagnostic Test (Pha) (Accucheck) 1 ea Q12 XX Last administered on 07/11/16 10: 51; Admin Dose 1 EA; Start 07/02/16 at 09:00 Acetaminophen (Tylenol Tab) 325 mg Q6H PRN PO PAIN AND OR ELEVATED TEMP Last administered on 07/01/16at 23:54; Admin Dose 325 MG; Start 07/01/16 at 23:06 Docusate Sodium (Colace) 100 mg BID PO Last administered on 07/11/16 10:44; Admin Dose 100 MG; Start 07/02/16 at 09:00 Senna (Senokot) 1 tab HS PO Last administered on 07/10/16 21:04; Admin Dose 1 TAB; Start 07/02/16 at 21:00 Bisacodyl (Dulcolax Supp) 10 mg DAILY PRN [place] CONSTIPATION Last administered on 07/09/16 17:18; Admin Dose 10 MG; Start 07/02/16 at 01:30 Magnesium Hydroxide (Milk Of Mag) 30 ml BID PRN PO CONSTIPATION; Start at 01:30 Lactulose (Enulose) 20 gm DAILY PRN PO CONSTIPATION; Start 07/02/16 at 01:30 Acetaminophen (Tylenol Tab) 650 mg Q4H PRN PO PAIN Last administered on 07:10; Admin Dose 650 MG; Start 07/02/16 at 01:30 Oxycodone HCl 5 mg 5 mg Q4H PRN PO MODERATE PAIN Last administered on 07/06/16 08:22; Admin Dose 5 MG; Start 07/02/16 at 04:07 Total Parenteral Nutrition 1,000 ml @ 133 mls/hr 21 IV Last administered on 21:03; Admin Dose 133 MLS/HR; Start 07/02/16 at 21:00 Total Parenteral Nutrition (Tpn) 1,000 ml @ 133 mls/hr 0430 IV Last administered on 07/11/16 04:39; Admin Dose 133 MLS/HR; Start 07/03/16 at 04:30 Miscellaneous Information 1 ea 1 ea NOTE XX ; Start 07/02/16 at 21:00 Fat Emulsion Intravenous (Liposyn Ii 20%) 250 ml @ 21 mls/hr 21 IV Last administered on 07/10/16 21:03; Admin Dose 21 MLS/HR; Start 07/02/16 at 21:00 Gabapentin (Neurontin) 100 mg DAILY PO Last administered on 07/11/16 10:44; Admin Dose 100 MG; Start 07/04/16 at 11:30 Al Hydrox/Mg Hydrox/Simethicone (Mag-Al Plus) 30 ml Q6H PRN PO GASTROINTESTINAL UPSET Last administered on 07/09/16 07:20; Admin Dose 30 ML; Start 07/07/16 at 13:00 Phenyleph/Shark Oil/Min Oil/Petrol (Formulation R Oint) 1 applic BID [place] Last administered on 07/10/16 21:06; Admin Dose 1 APPLIC; Start 07/10/16 at 08:17 Pantoprazole (Protonix Tab) 40 mg DAILY@06 PO ; Start 07/11/16 at 14:00 Ondansetron HCl (Zofran Tab) 4 mg Q6H PRN PO NAUSEA AND/OR VOMITING; Start 07/11 at 12:51 CATIE PAREDES MD Jul 11, 2016 13:06
[2016-07-11] MEDS ORDERED: PANTOPRAZOLE (EC) 40 MG TAB PO SCH (14:00)
[2016-07-11] MEDS ORDERED: IOHEXOL 300MG/ML 150 ML BTL ONE (14:54)
[2016-07-11] MEDS ORDERED: SOD CHLORIDE 0.9% 100 ML ONE (14:54)
--- NOTE | 2016-07-11 16:43 | RADRPT ---
PROCEDURE: CT Abdomen and Pelvis with contrast. CLINICAL INDICATION: Abdomen and pelvis pain. TECHNIQUE: CT scan of the abdomen and pelvis with contrast was performed. The patient was scanned following the uncomplicated intravenous administration of 100 cc of Omnipaque-300. Coronal and sag ittal reformatted images were obtained from the axial source images. Images were reviewed on a high- resolution PACS workstation. Total exam DLP is 1003.95 mGy-cm. CTDIvol is 16.16 mGy. One or more of the following dose reduction techniques were used: Automated exposure control, adjustment of the mA and/or kV according to patient size, use of iterative reconstruction technique. COMPARISON: None. FINDINGS: There are multiple small nodules in the periphery of the lung bases consistent with metastatic disea se with the largest on the right measuring 1.1 cm and the largest on the left measuring 1.5 cm. The re is mild atelectasis at the right lung base posteriorly. The lung bases are otherwise normal. Th ere is no pleural effusion or pericardial effusion. The heart size is normal. There is extensive c oronary artery calcification. The liver is normal in size and attenuation with no focal lesion. There is gas within the intrahepa tic bile ducts consistent with the prior surgery. The gallbladder is surgically absent with clips noted in the gallbladder bed. The head of the pancr eas is surgically absent and there is a probable Whipple procedure. The head of the pancreas is surg ically absent. The body and tail are unremarkable. There is no sayra-pancreatic fluid collection. T here is a region of soft tissue thickening posterior to the superior mesenteric artery and vein sharon uring 2.0 x 3.5 cm in AP and transverse dimensions, suspicious for neoplasm. The spleen is normal in size. There is no focal splenic lesion. Both adrenals are normal with no enlargement or mass. The abdominal aorta is not dilated. There is calcification in the aorta consistent with atheroscler osis. Both kidneys demonstrate normal contrast enhancement. There is no solid renal mass, hydronephrosis, or calculus. There is a benign cyst in the mid right kidney posteriorly measuring 3.6 cm. There are multiple mildly enlarged lymph nodes within the retroperitoneum with the largest posterior to the inferior vena cava/left renal vein junction measuring approximately 1.4 x 0.7 cm. The bowel is unremarkable. There is a large irregular mesenteric mass in the left mid abdomen anter iorly measuring approximately 4.0 x 7.0 x 7.7 cm in AP, transverse, and cranial caudal dimensions. There is no other mesenteric mass. The bladder and distal ureters are normal. The periappendiceal region is unremarkable with no evidence of appendicitis. The prostate is enlarged. There is no free fluid or free gas. There are degenerative changes of the spine. There is no fracture or lytic lesion. IMPRESSION: 1. Multiple nodules in the periphery of the lung bases bilaterally consistent with metastatic disea se. 2. Mild atelectasis at the right lung base posteriorly. 3. Extensive coronary artery calcification. 4. Pneumobilia. 5. Prior Whipple procedure. 6. Soft tissue thickening posterior to the superior mesenteric artery and vein suspicious for neopl asm. 7. Atherosclerosis. 8. Benign right renal cyst. 9. Multiple mildly enlarged lymph nodes in the retroperitoneum, suspicious for neoplasm. 10. Large irregular mesenteric mass in the left mid abdomen anteriorly measuring up to 7.7 cm in ma ximal dimension, consistent with neoplasm. 11. Enlarged prostate. 12. Degenerative changes of the spine. RPTAT: QQ .Manfred Nguyen MD, Date Time Electronically viewed and signed by .Manfred Nguyen MD, on 07/11/2016 16:43 .R/
--- NOTE | 2016-07-11 18:13 | PN ---
Date/Time of Note Date/Time of Note DATE: 07/11/16 TIME: 18:08 Assessment/Plan VTE Prophylaxis VTE Prophylaxis Intervention: SCD's Lines/Catheters IV Catheter Type (from Nrs): PICC Line Central line still needed: Yes Urinary Cath still in place: No Assessment/Plan Chief Complaint/Hosp Course 1. 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 Medical management per internal medicine and oncology. Remains on TPN, continue to monitor PO intake. Continue PT/OT. 2. CAD s/p CABG. Continue aspirin and Lipitor. 3. HTN. Continue Cardura. 4. Anemia. Continue to monitor hemoglobin/hematocrit. 5. Hyperlipidemia. Continue Statin. 6. Chronic low back pain with history of spinal stenosis. Continue pain control. 7. Patient's complains of left lower quadrant abdominal pain and nausea, started on Reglan as needed for nausea, pending CT of the abdomen. Continue Protonix for peptic ulcer disease prophylaxis. Further recommendations based on clinical course and plan of care discussed with Dr. Almanza. Problems: Subjective 24 Hr Interval Summary Free Text/Dictation Patient's complains of left lower quadrant tenderness and nausea, tolerates diet well no vomiting, continues on TPN. Able to work with PT and OT. Exam/Review of Systems Vital Signs Vitals Vital Signs Date Time Temp Pulse Resp B/P Pulse Ox O2 Delivery O2 Flow Rate FiO2 07/11/16 08:00 97.9 104 18 139/69 96 Room Air Intake and Output 07/10/16 07/10/16 07/11/16 15:00 23:00 07:00 Intake Total 306 ml 1290 ml 1250 ml Output Total 1400 ml 950 ml Balance 306 ml -110 ml 300 ml Exam Constitutional: alert, oriented Psych: no complaints Head: atraumatic, normocephalic Eyes: nl conjunctiva ENMT: nl external ears & nose Neck: supple Respiratory: clear to auscultation, normal air movement Cardiovascular: regular rate and rhythm Gastrointestinal: other (LLQtenderness, s/p surgery), soft Extremities: normal pulses Neurological: 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 Results Result Diagram: 07/10/16 0701 Results 24 hrs Laboratory Tests Test 07/10/16 20:14 07/11/16 07:49 1/9/17 10:51 Bedside Glucose 98 153 117 Medications Medications Current Medications Ranitidine HCl (Zantac) 150 mg DAILY PO Last administered on 07/11/16 10:44; Admin Dose 150 MG; Start 07/02/16 at 09:00 Finasteride (Proscar) 5 mg DAILY PO Last administered on 07/11/16 10:45; Admin Dose 5 MG; Start 07/02/16 at 09:00 Ibuprofen (Motrin) 200 mg Q6H PRN PO PAIN; Start 07/01/16 at 23:00 Lidocaine (Lidoderm) 1 patch DAILY TD Last administered on 07/08/16 08:06; Admin Dose 1 PATCH; Start 07/02/16 at 09:00 Oxycodone/ Acetaminophen (Percocet (5/ 325)) 1 tab Q6H PRN PO PAIN Last administered on 07/11/16 06:30; Admin Dose 1 TAB; Start 07/01/16 at 23:00 Alprazolam (Xanax) 0.5 mg QHS PRN PO SLEEP; Start 07/01/16 at 23:00 Aspirin (Aspirin) 81 mg DAILY PO Last administered on 07/11/16 10:44; Admin Dose 81 MG; Start 07/02/16 at 09:00 Atorvastatin Calcium (Lipitor) 10 mg DAILY@21 PO Last administered on 07/10/16 21:04; Admin Dose 10 MG; Start 07/01/16 at 22:38 Bupropion HCl (Wellbutrin Xl) 300 mg DAILY PO Last administered on 07/11/16 10: 44; Admin Dose 300 MG; Start 07/02/16 at 09:00 Doxazosin Mesylate (Cardura) 8 mg 21 PO Last administered on 07/10/16 21:06; Admin Dose 8 MG; Start 07/01/16 at 23:00 Albuterol (Ventolin Hfa) 2 puff Q4H PRN INH SHORTNESS OF BREATH; Start at 23:00 Diagnostic Test (Pha) (Accucheck) 1 ea Q12 XX Last administered on 07/11/16 10: 51; Admin Dose 1 EA; Start 07/02/16 at 09:00 Acetaminophen (Tylenol Tab) 325 mg Q6H PRN PO PAIN AND OR ELEVATED TEMP Last administered on 12/30/16at 23:54; Admin Dose 325 MG; Start 07/01/16 at 23:06 Docusate Sodium (Colace) 100 mg BID PO Last administered on 07/11/16 10:44; Admin Dose 100 MG; Start 07/02/16 at 09:00 Senna (Senokot) 1 tab HS PO Last administered on 07/10/16 21:04; Admin Dose 1 TAB; Start 07/02/16 at 21:00 Bisacodyl (Dulcolax Supp) 10 mg DAILY PRN [place] CONSTIPATION Last administered on 07/09/16 17:18; Admin Dose 10 MG; Start 07/02/16 at 01:30 Magnesium Hydroxide (Milk Of Mag) 30 ml BID PRN PO CONSTIPATION; Start at 01:30 Lactulose (Enulose) 20 gm DAILY PRN PO CONSTIPATION; Start 07/02/16 at 01:30 Acetaminophen (Tylenol Tab) 650 mg Q4H PRN PO PAIN Last administered on 07:10; Admin Dose 650 MG; Start 07/02/16 at 01:30 Oxycodone HCl 5 mg 5 mg Q4H PRN PO MODERATE PAIN Last administered on 07/06/16 08:22; Admin Dose 5 MG; Start 07/02/16 at 04:07 Total Parenteral Nutrition 1,000 ml @ 133 mls/hr 21 IV Last administered on 21:03; Admin Dose 133 MLS/HR; Start 07/02/16 at 21:00 Total Parenteral Nutrition (Tpn) 1,000 ml @ 133 mls/hr 0430 IV Last administered on 07/11/16 04:39; Admin Dose 133 MLS/HR; Start 07/03/16 at 04:30 Miscellaneous Information 1 ea 1 ea NOTE XX ; Start 07/02/16 at 21:00 Fat Emulsion Intravenous (Liposyn Ii 20%) 250 ml @ 21 mls/hr 21 IV Last administered on 07/10/16 21:03; Admin Dose 21 MLS/HR; Start 07/02/16 at 21:00 Gabapentin (Neurontin) 100 mg DAILY PO Last administered on 07/11/16 10:44; Admin Dose 100 MG; Start 07/04/16 at 11:30 Al Hydrox/Mg Hydrox/Simethicone (Mag-Al Plus) 30 ml Q6H PRN PO GASTROINTESTINAL UPSET Last administered on 07/09/16 07:20; Admin Dose 30 ML; Start 07/07/16 at 13:00 Phenyleph/Shark Oil/Min Oil/Petrol (Formulation R Oint) 1 applic BID CO Last administered on 07/10/16 21:06; Admin Dose 1 APPLIC; Start 07/10/16 at 08:17 Pantoprazole (Protonix Tab) 40 mg DAILY@06 PO ; Start 07/11/16 at 14:00 Ondansetron HCl (Zofran Tab) 4 mg Q6H PRN PO NAUSEA AND/OR VOMITING Last administered on 07/11/16 14:15; Admin Dose 4 MG; Start 07/11/16 at 12:51 LAQUITA BEJARANO Jul 11, 2016 18:13
[2016-07-11] MEDS: BISACODYL 10 MG SUPP PR PRN (18:51)
[2016-07-11 20:01] VITALS: BP 126/64; RESP 17
[2016-07-11] MEDS: ATORVASTATIN 10 MG TAB PO SCH (20:11)
[2016-07-11] MEDS: PANTOPRAZOLE (EC) 40 MG TAB PO SCH (20:11)
[2016-07-11] MEDS: SENNA TAB PO SCH (20:12)
[2016-07-11] MEDS: DOXAZOSIN 4 MG TAB PO SCH (20:13)
[2016-07-11] MEDS: FAT EMULSION 20% 250 ML IV SCH (21:11)
[2016-07-12] MEDS: TPN 1,000 ML IV SCH ×2 (04:41→21:10)
[2016-07-12] MEDS: PANTOPRAZOLE (EC) 40 MG TAB PO SCH (06:50)
[2016-07-12 07:31] VITALS: BP 128/60; RESP 18
[2016-07-12] MEDS: OXYCODONE/ACETAMINOPHEN (5/325) TAB PO PRN ×4 (07:50→22:01)
[2016-07-12] MEDS: ACCUCHECK XX SCH ×2 (07:52→21:37)
[2016-07-12] MEDS: FINASTERIDE 5 MG TAB PO SCH (07:53)
[2016-07-12] MEDS: BUPROPION (XL) 150 MG TAB PO SCH (07:53)
[2016-07-12] MEDS: GABAPENTIN 100 MG CAP PO SCH (07:53)
[2016-07-12] MEDS: RANITIDINE 150 MG TAB PO SCH (07:53)
[2016-07-12] MEDS: DOCUSATE SODIUM 100 MG CAP PO SCH ×2 (07:54→21:11)
[2016-07-12] MEDS: ASPIRIN 81 MG TAB PO SCH (07:54)
[2016-07-12 08:00] VITALS: BP 128/60; PULSE 106; RESP 18
[2016-07-12] MEDS: PE/SHARK OIL/MO/PETROL 30 GM OINT PR SCH ×2 (08:04→21:00)
[2016-07-12] MEDS: LIDOCAINE 5% PATCH TD SCH (08:05)
[2016-07-12 11:04] LABS: BASOPHIL # 0.1 10^3/ul (0.0-0.1); BASOPHILS % 0.6 % (0.0-2.0); EOSINOPHILS # 0.2 10^3/ul (0.0-0.5); EOSINOPHILS % 2.1 % (0.0-7.0); HEMATOCRIT 28.8 % (42.0-52.0); HEMOGLOBIN 9.8 g/dl (14.0-18.0); LYMPHOCYTES # 2.4 10^3/ul (0.8-2.9); LYMPHOCYTES % 23.6 % (15.0-51.0); MEAN CORPUSCULAR HEMOGLOBIN 32.1 pg (29.0-33.0); MEAN CORPUSCULAR HGB CONC 33.9 g/dl (32.0-37.0); MEAN CORPUSCULAR VOLUME 94.6 fl (82.0-101.0); MEAN PLATELET VOLUME 8.2 fl (7.4-10.4); MONOCYTES % 9.3 % (0.0-11.0); NEUTROPHIL # 6.6 10^3/ul (1.6-7.5); NEUTROPHILS % 64.4 % (39.0-77.0); PLATELET COUNT 369 10^3/UL (140-440); RED BLOOD COUNT 3.04 10^6/ul (4.70-6.10); RED CELL DISTRIBUTION WIDTH 15.3 % (11.5-14.5); UNCORRECTED WBC 10.3 10^3/ul (4.8-10.8); WHITE BLOOD COUNT 10.3 10^3/ul (4.8-10.8)
[2016-07-12 11:12] LABS: CONDITION 1; LH ANALYZER COMMENTS 1
[2016-07-12 11:16] LABS: POTASSIUM 5.1 mmol/L (3.5-5.1)
[2016-07-12 11:18] LABS: CREATININE 0.73 mg/dl (0.61-1.24)
--- NOTE | 2016-07-12 11:36 | CONS ---
Date/Time of Note Date/Time of Note DATE: 07/12/16 TIME: 11:34 Consult Date/Type/Reason Admit Date/Time Jul 01, 2016 at 21:05 Subjective Patient comfortable Objective sba ambulation Vital Signs Date Time Temp Pulse Resp B/P Pulse Ox O2 Delivery O2 Flow Rate FiO2 07/12/16 07:31 98.1 106 18 128/60 96 07/11/16 08:00 Room Air Intake and Output 07/11/16 07/11/16 07/12/16 14:59 22:59 06:59 Intake Total 390 ml 1250 ml Output Total 720 ml 1 ml Balance -330 ml 1249 ml Results/Medications Result Diagram: 07/12/16 1005 07/12/16 1005 Results 24 hrs Laboratory Tests Test 07/11/16 20:08 07/12/16 07:52 07/12/16 10:05 Bedside Glucose 105 170 Anion Gap 15 Basophils # 0.1 Basophils % 0.6 Blood Morphology Comment Blood Urea Nitrogen 21 H Calcium Level Pending Carbon Dioxide Level 24 Chloride Level 101 Creatinine 0.73 Eosinophils # 0.2 Eosinophils % 2.1 Glucose Level 113 Hematocrit 28.8 L Hemoglobin 9.8 L Lymphocytes # 2.4 Lymphocytes % 23.6 Mean Corpuscular Hemoglobin 32.1 Mean Corpuscular Hemoglobin Concent 33.9 Mean Corpuscular Volume 94.6 Mean Platelet Volume 8.2 Monocytes # 1.0 H Monocytes % 9.3 Neutrophils # 6.6 Neutrophils % 64.4 Nucleated Red Blood Cells # 0.0 Nucleated Red Blood Cells % 0.0 Platelet Count 369 Potassium Level 5.1 Red Blood Count 3.04 L Red Cell Distribution Width 15.3 H Sodium Level 135 White Blood Count 10.3 Medications Current Medications Ranitidine HCl (Zantac) 150 mg DAILY PO Last administered on 07/12/16 07:53; Admin Dose 150 MG; Start 07/02/16 at 09:00 Finasteride (Proscar) 5 mg DAILY PO Last administered on 07/12/16 07:53; Admin Dose 5 MG; Start 07/02/16 at 09:00 Ibuprofen (Motrin) 200 mg Q6H PRN PO PAIN; Start 07/01/16 at 23:00 Lidocaine (Lidoderm) 1 patch DAILY TD Last administered on 07/08/16 08:06; Admin Dose 1 PATCH; Start 07/02/16 at 09:00 Oxycodone/ Acetaminophen (Percocet (5/ 325)) 1 tab Q6H PRN PO PAIN Last administered on 07/12/16 07:50; Admin Dose 1 TAB; Start 07/01/16 at 23:00 Alprazolam (Xanax) 0.5 mg QHS PRN PO SLEEP; Start 07/01/16 at 23:00 Aspirin (Aspirin) 81 mg DAILY PO Last administered on 07/12/16 07:54; Admin Dose 81 MG; Start 07/02/16 at 09:00 Atorvastatin Calcium (Lipitor) 10 mg DAILY@21 PO Last administered on 07/11/16 20:11; Admin Dose 10 MG; Start 07/01/16 at 22:38 Bupropion HCl (Wellbutrin Xl) 300 mg DAILY PO Last administered on 07/12/16 07 :53; Admin Dose 300 MG; Start 07/02/16 at 09:00 Doxazosin Mesylate (Cardura) 8 mg 21 PO Last administered on 07/11/16 20:13; Admin Dose 8 MG; Start 07/01/16 at 23:00 Albuterol (Ventolin Hfa) 2 puff Q4H PRN INH SHORTNESS OF BREATH; Start at 23:00 Diagnostic Test (Pha) (Accucheck) 1 ea Q12 XX Last administered on 07/12/16 07 :52; Admin Dose 1 EA; Start 07/02/16 at 09:00 Acetaminophen (Tylenol Tab) 325 mg Q6H PRN PO PAIN AND OR ELEVATED TEMP Last administered on 07/01/16at 23:54; Admin Dose 325 MG; Start 07/01/16 at 23:06 Docusate Sodium (Colace) 100 mg BID PO Last administered on 07/12/16 07:54; Admin Dose 100 MG; Start 07/02/16 at 09:00 Senna (Senokot) 1 tab HS PO Last administered on 07/11/16 20:12; Admin Dose 1 TAB; Start 07/02/16 at 21:00 Bisacodyl (Dulcolax Supp) 10 mg DAILY PRN [place] CONSTIPATION Last administered on 07/11/16 18:51; Admin Dose 10 MG; Start 12/31/16 at 01:30 Magnesium Hydroxide (Milk Of Mag) 30 ml BID PRN PO CONSTIPATION; Start at 01:30 Lactulose (Enulose) 20 gm DAILY PRN PO CONSTIPATION; Start 07/02/16 at 01:30 Acetaminophen (Tylenol Tab) 650 mg Q4H PRN PO PAIN Last administered on 07:10; Admin Dose 650 MG; Start 07/02/16 at 01:30 Oxycodone HCl 5 mg 5 mg Q4H PRN PO MODERATE PAIN Last administered on 07/06/16 08:22; Admin Dose 5 MG; Start 07/02/16 at 04:07 Total Parenteral Nutrition 1,000 ml @ 133 mls/hr 21 IV Last administered on 21:11; Admin Dose 133 MLS/HR; Start 07/02/16 at 21:00 Total Parenteral Nutrition (Tpn) 1,000 ml @ 133 mls/hr 0430 IV Last administered on 07/12/16 04:41; Admin Dose 133 MLS/HR; Start 07/03/16 at 04:30 Miscellaneous Information 1 ea 1 ea NOTE XX ; Start 07/02/16 at 21:00 Fat Emulsion Intravenous (Liposyn Ii 20%) 250 ml @ 21 mls/hr 21 IV Last administered on 07/11/16 21:11; Admin Dose 21 MLS/HR; Start 07/02/16 at 21:00 Gabapentin (Neurontin) 100 mg DAILY PO Last administered on 07/12/16 07:53; Admin Dose 100 MG; Start 07/04/16 at 11:30 Al Hydrox/Mg Hydrox/Simethicone (Mag-Al Plus) 30 ml Q6H PRN PO GASTROINTESTINAL UPSET Last administered on 07/09/16 07:20; Admin Dose 30 ML; Start 07/07/16 at 13:00 Phenyleph/Shark Oil/Min Oil/Petrol (Formulation R Oint) 1 applic BID [place] Last administered on 07/11/16 20:13; Admin Dose 1 APPLIC; Start 07/10/16 at 08:17 Ondansetron HCl (Zofran Tab) 4 mg Q6H PRN PO NAUSEA AND/OR VOMITING Last administered on 07/11/16 14:15; Admin Dose 4 MG; Start 07/11/16 at 12:51 Pantoprazole (Protonix Tab) 40 mg DAILY@06 PO Last administered on 07/12/16t 06 :50; Admin Dose 40 MG; Start 07/11/16 at 21:00 Assessment/Plan Additional Assessment/Plan Rehab- Debility due to whipple; enceph resolved Working towrds dc tomorrow Abdomen- Pt had noted firmness in left abdomen. CT ordered yesterday- mass noted. CT results sent to patients surgeon at [facility] CAD/CABG HTN adenoCA GODWIN S/p CATIE QUIGLEY MD Jul 12, 2016 11:36
--- NOTE | 2016-07-12 15:14 | PN ---
Date/Time of Note Date/Time of Note DATE: 07/12/16 TIME: 15:11 Assessment/Plan VTE Prophylaxis VTE Prophylaxis Intervention: SCD's Lines/Catheters IV Catheter Type (from Nrs): PICC Line Central line still needed: Yes Urinary Cath still in place: No Assessment/Plan Chief Complaint/Hosp Course 1. 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 Medical management per internal medicine and oncology. Remains on TPN, continue to monitor PO intake. Continue PT/OT. 2. CAD s/p CABG. Continue aspirin and Lipitor. 3. HTN. Continue Cardura. 4. Anemia. Continue to monitor hemoglobin/hematocrit. 5. Hyperlipidemia. Continue Statin. 6. Chronic low back pain with history of spinal stenosis. Continue pain control. 7. Patient's complains of left lower quadrant abdominal pain and nausea, started on Reglan as needed for nausea, CT of the abdomen noted. Continue Protonix for peptic ulcer disease prophylaxis. Further recommendations based on clinical course and plan of care discussed with Dr. Almanza. Problems: Subjective 24 Hr Interval Summary Free Text/Dictation Patient looks comfortable, able to work with PT, continues on TPN, poor appetite , however no nausea vomiting noted. Exam/Review of Systems Vital Signs Vitals Vital Signs Date Time Temp Pulse Resp B/P Pulse Ox O2 Delivery O2 Flow Rate FiO2 07/12/16 08:00 98.1 106 18 128/60 96 Room Air Intake and Output 07/11/16 07/11/16 07/12/16 15:00 23:00 07:00 Intake Total 390 ml 1250 ml Output Total 720 ml 1 ml Balance -330 ml 1249 ml Exam Constitutional: alert, oriented Psych: no complaints Head: atraumatic, normocephalic Eyes: nl conjunctiva ENMT: nl external ears & nose Neck: supple Respiratory: clear to auscultation, normal air movement Cardiovascular: regular rate and rhythm Gastrointestinal: other (LLQtenderness, s/p surgery), soft Extremities: normal pulses 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 Results Result Diagram: 07/12/16 1005 07/12/16 1005 Results 24 hrs Laboratory Tests Test 07/11/16 20:08 07/12/16 07:52 07/12/16 10:05 Bedside Glucose 105 170 Anion Gap 15 Basophils # 0.1 Basophils % 0.6 Blood Morphology Comment Blood Urea Nitrogen 21 H Calcium Level 9.0 Carbon Dioxide Level 24 Chloride Level 101 Creatinine 0.73 Eosinophils # 0.2 Eosinophils % 2.1 Glucose Level 113 Hematocrit 28.8 L Hemoglobin 9.8 L Lymphocytes # 2.4 Lymphocytes % 23.6 Mean Corpuscular Hemoglobin 32.1 Mean Corpuscular Hemoglobin Concent 33.9 Mean Corpuscular Volume 94.6 Mean Platelet Volume 8.2 Monocytes # 1.0 H Monocytes % 9.3 Neutrophils # 6.6 Neutrophils % 64.4 Nucleated Red Blood Cells # 0.0 Nucleated Red Blood Cells % 0.0 Platelet Count 369 Potassium Level 5.1 Red Blood Count 3.04 L Red Cell Distribution Width 15.3 H Sodium Level 135 White Blood Count 10.3 Medications Medications Current Medications Ranitidine HCl (Zantac) 150 mg DAILY PO Last administered on 07/12/16 07:53; Admin Dose 150 MG; Start 07/02/16 at 09:00 Finasteride (Proscar) 5 mg DAILY PO Last administered on 07/12/16 07:53; Admin Dose 5 MG; Start 07/02/16 at 09:00 Ibuprofen (Motrin) 200 mg Q6H PRN PO PAIN; Start 07/01/16 at 23:00 Lidocaine (Lidoderm) 1 patch DAILY TD Last administered on 07/08/16 08:06; Admin Dose 1 PATCH; Start 07/02/16 at 09:00 Oxycodone/ Acetaminophen (Percocet (5/ 325)) 1 tab Q6H PRN PO PAIN Last administered on 07/12/16 07:50; Admin Dose 1 TAB; Start 07/01/16 at 23:00 Alprazolam (Xanax) 0.5 mg QHS PRN PO SLEEP; Start 07/01/16 at 23:00 Aspirin (Aspirin) 81 mg DAILY PO Last administered on 07/12/16 07:54; Admin Dose 81 MG; Start 07/02/16 at 09:00 Atorvastatin Calcium (Lipitor) 10 mg DAILY@21 PO Last administered on 07/11/16 20:11; Admin Dose 10 MG; Start 07/01/16 at 22:38 Bupropion HCl (Wellbutrin Xl) 300 mg DAILY PO Last administered on 07/12/16 07 :53; Admin Dose 300 MG; Start 07/02/16 at 09:00 Doxazosin Mesylate (Cardura) 8 mg 21 PO Last administered on 07/11/16 20:13; Admin Dose 8 MG; Start 07/01/16 at 23:00 Albuterol (Ventolin Hfa) 2 puff Q4H PRN INH SHORTNESS OF BREATH; Start at 23:00 Diagnostic Test (Pha) (Accucheck) 1 ea Q12 XX Last administered on 07/12/16 07 :52; Admin Dose 1 EA; Start 07/02/16 at 09:00 Acetaminophen (Tylenol Tab) 325 mg Q6H PRN PO PAIN AND OR ELEVATED TEMP Last administered on 07/01/16at 23:54; Admin Dose 325 MG; Start 07/01/16 at 23:06 Docusate Sodium (Colace) 100 mg BID PO Last administered on 07/12/16 07:54; Admin Dose 100 MG; Start 07/02/16 at 09:00 Senna (Senokot) 1 tab HS PO Last administered on 07/11/16 20:12; Admin Dose 1 TAB; Start 07/02/16 at 21:00 Bisacodyl (Dulcolax Supp) 10 mg DAILY PRN [place] CONSTIPATION Last administered on 07/11/16 18:51; Admin Dose 10 MG; Start 07/02/16 at 01:30 Magnesium Hydroxide (Milk Of Mag) 30 ml BID PRN PO CONSTIPATION; Start at 01:30 Lactulose (Enulose) 20 gm DAILY PRN PO CONSTIPATION; Start 07/02/16 at 01:30 Acetaminophen (Tylenol Tab) 650 mg Q4H PRN PO PAIN Last administered on 07:10; Admin Dose 650 MG; Start 07/02/16 at 01:30 Oxycodone HCl 5 mg 5 mg Q4H PRN PO MODERATE PAIN Last administered on 07/06/16 08:22; Admin Dose 5 MG; Start 07/02/16 at 04:07 Total Parenteral Nutrition 1,000 ml @ 133 mls/hr 21 IV Last administered on 21:11; Admin Dose 133 MLS/HR; Start 07/02/16 at 21:00 Total Parenteral Nutrition (Tpn) 1,000 ml @ 133 mls/hr 0430 IV Last administered on 07/12/16 04:41; Admin Dose 133 MLS/HR; Start 07/03/16 at 04:30 Miscellaneous Information 1 ea 1 ea NOTE XX ; Start 07/02/16 at 21:00 Fat Emulsion Intravenous (Liposyn Ii 20%) 250 ml @ 21 mls/hr 21 IV Last administered on 07/11/16 21:11; Admin Dose 21 MLS/HR; Start 07/02/16 at 21:00 Gabapentin (Neurontin) 100 mg DAILY PO Last administered on 07/12/16 07:53; Admin Dose 100 MG; Start 07/04/16 at 11:30 Al Hydrox/Mg Hydrox/Simethicone (Mag-Al Plus) 30 ml Q6H PRN PO GASTROINTESTINAL UPSET Last administered on 07/09/16 07:20; Admin Dose 30 ML; Start 07/07/16 at 13:00 Phenyleph/Shark Oil/Min Oil/Petrol (Formulation R Oint) 1 applic BID MT Last administered on 07/11/16 20:13; Admin Dose 1 APPLIC; Start 07/10/16 at 08:17 Ondansetron HCl (Zofran Tab) 4 mg Q6H PRN PO NAUSEA AND/OR VOMITING Last administered on 07/11/16 14:15; Admin Dose 4 MG; Start 07/11/16 at 12:51 Pantoprazole (Protonix Tab) 40 mg DAILY@06 PO Last administered on 07/12/16 06 :50; Admin Dose 40 MG; Start 07/11/16 at 21:00 LAQUITA BEJARANO Jul 12, 2016 15:14
[2016-07-12 20:00] VITALS: BP 131/71; PULSE 106; RESP 17
[2016-07-12 20:08] VITALS: BP 131/71; RESP 17
[2016-07-12] MEDS: ATORVASTATIN 10 MG TAB PO SCH (21:10)
[2016-07-12] MEDS: SENNA TAB PO SCH (21:10)
[2016-07-12] MEDS: FAT EMULSION 20% 250 ML IV SCH (21:10)
[2016-07-12] MEDS: DOXAZOSIN 4 MG TAB PO SCH (21:11)
[2016-07-13] MEDS: TPN 1,000 ML IV SCH (05:00)
[2016-07-13] MEDS: PANTOPRAZOLE (EC) 40 MG TAB PO SCH (06:06)
[2016-07-13 06:53] LABS: BASOPHILS % 0.3 % (0.0-2.0); EOSINOPHILS # 0.3 10^3/ul (0.0-0.5); EOSINOPHILS % 2.9 % (0.0-7.0); HEMATOCRIT 26.6 % (42.0-52.0); HEMOGLOBIN 9.2 g/dl (14.0-18.0); LYMPHOCYTES # 2.2 10^3/ul (0.8-2.9); LYMPHOCYTES % 25.9 % (15.0-51.0); MEAN CORPUSCULAR HEMOGLOBIN 32.8 pg (29.0-33.0); MEAN CORPUSCULAR HGB CONC 34.6 g/dl (32.0-37.0); MEAN CORPUSCULAR VOLUME 94.8 fl (82.0-101.0); MEAN PLATELET VOLUME 7.8 fl (7.4-10.4); MONOCYTE # 0.8 10^3/ul (0.3-0.9); MONOCYTES % 9.7 % (0.0-11.0); NEUTROPHIL # 5.3 10^3/ul (1.6-7.5); NEUTROPHILS % 61.2 % (39.0-77.0); PLATELET COUNT 365 10^3/UL (140-440); RED BLOOD COUNT 2.81 10^6/ul (4.70-6.10); RED CELL DISTRIBUTION WIDTH 15.5 % (11.5-14.5); UNCORRECTED WBC 8.6 10^3/ul (4.8-10.8); WHITE BLOOD COUNT 8.6 10^3/ul (4.8-10.8)
[2016-07-13 06:55] LABS: CONDITION 1; LH ANALYZER COMMENTS 1
[2016-07-13 07:12] LABS: POTASSIUM 4.5 mmol/L (3.5-5.1)
[2016-07-13 07:15] LABS: CALCIUM 8.7 mg/dl (8.4-10.2); CREATININE 0.76 mg/dl (0.61-1.24)
[2016-07-13] MEDS: OXYCODONE/ACETAMINOPHEN (5/325) TAB PO PRN (07:21)
[2016-07-13 07:25] VITALS: BP 144/69; RESP 18
[2016-07-13 08:00] VITALS: BP 144/69; PULSE 111; RESP 18
[2016-07-13] MEDS: LIDOCAINE 5% PATCH TD SCH (08:18)
[2016-07-13] MEDS: GABAPENTIN 100 MG CAP PO SCH (08:23)
[2016-07-13] MEDS: FINASTERIDE 5 MG TAB PO SCH (08:23)
[2016-07-13] MEDS: RANITIDINE 150 MG TAB PO SCH (08:23)
[2016-07-13] MEDS: ASPIRIN 81 MG TAB PO SCH (08:23)
[2016-07-13] MEDS: BUPROPION (XL) 150 MG TAB PO SCH (08:23)
[2016-07-13] MEDS: DOCUSATE SODIUM 100 MG CAP PO SCH (08:23)
[2016-07-13] MEDS: PE/SHARK OIL/MO/PETROL 30 GM OINT PR SCH (08:29)
[2016-07-13] MEDS: BISACODYL 10 MG SUPP PR PRN (09:30)
[2016-07-13] MEDS: ACCUCHECK XX SCH (09:44)
--- NOTE | 2016-07-13 11:26 | CONS ---
Date/Time of Note Date/Time of Note DATE: 07/13/16 TIME: 11:22 Consult Date/Type/Reason Admit Date/Time Jul 01, 2016 at 21:05 Subjective No new complaints. Still with limited PO intake Objective sba ambulation Vital Signs Date Time Temp Pulse Resp B/P Pulse Ox O2 Delivery O2 Flow Rate FiO2 07/13/16 08:00 98.1 111 18 144/69 96 Room Air Intake and Output 07/12/16 07/12/16 07/13/16 15:00 23:00 07:00 Intake Total 480 ml 480 ml 1368 ml Output Total 500 ml 500 ml 1000 ml Balance -20 ml -20 ml 368 ml Results/Medications Result Diagram: 07/13/1615 07/13/1615 Results 24 hrs Laboratory Tests Test 07/12/16 21:30 07/13/16 06:15 07/13/16 07:46 07/13/16 09:43 Bedside Glucose 115 154 115 Anion Gap 14 Basophils # 0.0 Basophils % 0.3 Blood Morphology Comment Blood Urea Nitrogen 18 Calcium Level 8.7 Carbon Dioxide Level 26 Chloride Level 101 Creatinine 0.76 Eosinophils # 0.3 Eosinophils % 2.9 Glucose Level 136 Hematocrit 26.6 L Hemoglobin 9.2 L Lymphocytes # 2.2 Lymphocytes % 25.9 Mean Corpuscular Hemoglobin 32.8 Mean Corpuscular Hemoglobin Concent 34.6 Mean Corpuscular Volume 94.8 Mean Platelet Volume 7.8 Monocytes # 0.8 Monocytes % 9.7 Neutrophils # 5.3 Neutrophils % 61.2 Nucleated Red Blood Cells # 0.0 Nucleated Red Blood Cells % 0.0 Platelet Count 365 Potassium Level 4.5 Red Blood Count 2.81 L Red Cell Distribution Width 15.5 H Sodium Level 136 White Blood Count 8.6 Medications Current Medications Ranitidine HCl (Zantac) 150 mg DAILY PO Last administered on 07/13/16 08:23; Admin Dose 150 MG; Start 07/02/16 at 09:00 Finasteride (Proscar) 5 mg DAILY PO Last administered on 07/13/16 08:23; Admin Dose 5 MG; Start 07/02/16 at 09:00 Ibuprofen (Motrin) 200 mg Q6H PRN PO PAIN; Start 07/01/16 at 23:00 Lidocaine (Lidoderm) 1 patch DAILY TD Last administered on 07/08/16 08:06; Admin Dose 1 PATCH; Start 07/02/16 at 09:00 Oxycodone/ Acetaminophen (Percocet (5/ 325)) 1 tab Q6H PRN PO PAIN Last administered on 07/13/16 07:21; Admin Dose 1 TAB; Start 07/01/16 at 23:00 Alprazolam (Xanax) 0.5 mg QHS PRN PO SLEEP; Start 07/01/16 at 23:00 Aspirin (Aspirin) 81 mg DAILY PO Last administered on 07/13/16 08:23; Admin Dose 81 MG; Start 07/02/16 at 09:00 Atorvastatin Calcium (Lipitor) 10 mg DAILY@21 PO Last administered on 21:10; Admin Dose 10 MG; Start 07/01/16 at 22:38 Bupropion HCl (Wellbutrin Xl) 300 mg DAILY PO Last administered on 07/13/16 08 :23; Admin Dose 300 MG; Start 07/02/16 at 09:00 Doxazosin Mesylate (Cardura) 8 mg 21 PO Last administered on 07/12/16 21:11; Admin Dose 8 MG; Start 07/01/16 at 23:00 Albuterol (Ventolin Hfa) 2 puff Q4H PRN INH SHORTNESS OF BREATH; Start at 23:00 Diagnostic Test (Pha) (Accucheck) 1 ea Q12 XX Last administered on 07/13/16 09 :44; Admin Dose 1 EA; Start 07/02/16 at 09:00 Acetaminophen (Tylenol Tab) 325 mg Q6H PRN PO PAIN AND OR ELEVATED TEMP Last administered on 07/01/16at 23:54; Admin Dose 325 MG; Start 07/01/16 at 23:06 Docusate Sodium (Colace) 100 mg BID PO Last administered on 07/13/16 08:23; Admin Dose 100 MG; Start 07/02/16 at 09:00 Senna (Senokot) 1 tab HS PO Last administered on 07/12/16 21:10; Admin Dose 1 TAB; Start 07/02/16 at 21:00 Bisacodyl (Dulcolax Supp) 10 mg DAILY PRN [place] CONSTIPATION Last administered on 07/13/16 09:30; Admin Dose 10 MG; Start 07/02/16 at 01:30 Magnesium Hydroxide (Milk Of Mag) 30 ml BID PRN PO CONSTIPATION; Start at 01:30 Lactulose (Enulose) 20 gm DAILY PRN PO CONSTIPATION; Start 07/02/16 at 01:30 Acetaminophen (Tylenol Tab) 650 mg Q4H PRN PO PAIN Last administered on 07:10; Admin Dose 650 MG; Start 07/02/16 at 01:30 Oxycodone HCl 5 mg 5 mg Q4H PRN PO MODERATE PAIN Last administered on 07/06/16 08:22; Admin Dose 5 MG; Start 07/02/16 at 04:07 Total Parenteral Nutrition 1,000 ml @ 133 mls/hr 21 IV Last administered on 21:10; Admin Dose 133 MLS/HR; Start 07/02/16 at 21:00 Total Parenteral Nutrition (Tpn) 1,000 ml @ 133 mls/hr 0430 IV Last administered on 07/13/16 05:00; Admin Dose 133 MLS/HR; Start 07/03/16 at 04:30 Miscellaneous Information 1 ea 1 ea NOTE XX ; Start 07/02/16 at 21:00 Fat Emulsion Intravenous (Liposyn Ii 20%) 250 ml @ 21 mls/hr 21 IV Last administered on 07/12/16 21:10; Admin Dose 21 MLS/HR; Start 07/02/16 at 21:00 Gabapentin (Neurontin) 100 mg DAILY PO Last administered on 07/13/16 08:23; Admin Dose 100 MG; Start 07/04/16 at 11:30 Al Hydrox/Mg Hydrox/Simethicone (Mag-Al Plus) 30 ml Q6H PRN PO GASTROINTESTINAL UPSET Last administered on 07/09/16 07:20; Admin Dose 30 ML; Start 07/07/16 at 13:00 Phenyleph/Shark Oil/Min Oil/Petrol (Formulation R Oint) 1 applic BID VT Last administered on 07/11/16 20:13; Admin Dose 1 APPLIC; Start 07/10/16 at 08:17 Ondansetron HCl (Zofran Tab) 4 mg Q6H PRN PO NAUSEA AND/OR VOMITING Last administered on 07/11/16 14:15; Admin Dose 4 MG; Start 07/11/16 at 12:51 Pantoprazole (Protonix Tab) 40 mg DAILY@06 PO Last administered on 07/13/16t 06 :06; Admin Dose 40 MG; Start 07/11/16 at 21:00 Assessment/Plan Additional Assessment/Plan Rehab- Debility Overall improved from rehab standpoint. Long discussion with patient, and with daughter, Maria De Jesus, regarding current functional status, and current medical status. Results of CT scan reviewed, and patient would prefer to have further work up as outpatient, and has appointment with [facility] surgeon, and will also see his PMD. FEN- limited po intake, so patient will receive home health TPN, and PMD will follow up. Home health PT,OT, RN arranged , and patient and daughter are in agreement with the dc plan. CATIE PAREDES MD Jul 13, 2016 11:25
--- NOTE | 2016-07-13 17:55 | PN ---
DATE: 07/13/2016 PSYCHOLOGY - INDIVIDUAL SESSION - [id number] This is a followup on a patient who was seen last week. The patient was seen in bed. The patient w as preparing for being discharged today. The patient is happy about going home finely. The patient is aware that he has another mass that they detected and is very upset about this but feels that he is still wanting to go home first and be able to handle as much as he can at home before having to return to the hospital. The patient's attitude was positive, although, he is extremely frustrated a nd fearful about what is going to happen to him medically in the future. Dictated By: REA SANDERSON PHD KAYLA/ALIYA Conf#: [id number] DID#: [id number]
--- NOTE | 2016-07-13 19:25 | DS ---
DATE OF ADMISSION: 07/01/2016 DATE OF DISCHARGE: 07/13/2016 DISCHARGE DIAGNOSES: 1. Pancreatic carcinoma, status post Whipple procedure. Recent CT showed liver metastases. 2. Coronary artery disease, status post coronary artery bypass graft. 3. Hypertension. 4. Anemia. 5. Dyslipidemia. 6. Spinal stenosis. 7. Generalized debility. 8. The patient is getting total parenteral nutrition. DISCHARGE MEDICATIONS: Please see discharge instructions. The patient will continue TPN at home, f ollow up with [facility] Surgery. REASON FOR ADMISSION: The patient is an 86-year-old gentleman with history of coronary artery disea se, status post CABG; hypertension; dyslipidemia. The patient recently underwent a Whipple procedur e at [facility]. The patient was subsequently transferred to [facility]. From there, he was stabilized and was transferred to acute rehab. The patient was seen by Dr. Baylee Clemente from r ehab standpoint, and her recommendations were carried out. The patient progressed well with physica l therapy and was walking with front-wheeled walker. The patient also was prescribed manual wheelch air for home use. There was no reported vomiting, fever or chills on the day of discharge, no repor bharathi shortness of breath. The patient was saturating 98% on room air. PHYSICAL EXAMINATION: GENERAL: The patient is conscious, awake, alert. VITAL SIGNS: Temperature 98.1, pulse 111, respirations 18, blood pressure 144/69, O2 saturation 97 on room air. HEENT: Conjunctivae are pale. Lids are normal. Oropharynx revealed pale mucosa. Nose and ears no rmal. NECK: Supple. No mass, no thyromegaly. CHEST: Fairly clear. No use of accessory muscles. CARDIOVASCULAR: S1, S2 normal. No murmur. ABDOMEN: Soft, nondistended. EXTREMITIES: No leg edema. Pedal pulses palpable. SKIN: Without acute rash. NEUROLOGIC: The patient awake, alert, fairly oriented with no gross focal deficit. The patient has no gross focal deficit. LABORATORIES DONE THIS MORNING: WBC 8.6, hemoglobin 9.2, platelets 365. Sodium 136, potassium 4.5, BUN 18, creatinine 0.7, glucose 136. CONDITION ON DISCHARGE: Stable. The patient will also follow up with his PMD, Oncology and Surgery as an outpatient. Dictated By: ARACELI JONES/ALIYA Conf#: [id number] DID#: [id number]
== END 2016-07-13 12:26 | disposition home health service (06) | DRG 435 ==
LOC: VRC 21:05
PROVIDERS: ADMIT Internal Medicine; ATTEND Internal Medicine
DX: C25.9 Malignant neoplasm of pancreas, unspecified (principal); G92 Toxic encephalopathy; N17.9 Acute kidney failure, unspecified; C78.7 Secondary malignant neoplasm of liver and intrahepatic bile duct; Z95.1 Presence of aortocoronary bypass graft; I10 Essential (primary) hypertension; D64.9 Anemia, unspecified; R53.81 Other malaise; F06.31 Mood disorder due to known physiological condition with depressive features; G89.29 Other chronic pain; M54.5 Low back pain; R10.32 Left lower quadrant pain; R11.0 Nausea
CPT/HCPCS: 74000; 74177; 80048; 80053; 81003; 82962; 83735; 84100; 85025; 87081; 87086; 92523; 92526; 92610; 95852; 97001; 97003; 97110; 97112; 97116; 97150; 97530; 97535; L1820; Q9967